=== PATIENT | female | born 1945 | race American Indian/Alaskan Native ===

== ENCOUNTER 2018-10-20 16:51 | Inpatient (IN) | payer MEDICARE, MEDICAID ==
[2018-10-20] MEDS ORDERED: PROVENTIL IH ONE (17:26)
[2018-10-20] MEDS ORDERED: MAGNESIUM SULFATE 2GM/50ML 2 GM/50 ML BAG IV ONE (17:26)
[2018-10-20] MEDS ORDERED: ATROVENT IH ONE (17:26)
[2018-10-20] MEDS ORDERED: NACL 0.9% 250ML 250 ML IV ONE (17:26)
--- NOTE | 2018-10-20 17:28 | Emergency Department Report ---
<DALLIN BALLARD - Last Filed: 10/20/18 20:21> ED General Adult HPI - General Chief complaint: Weakness Stated complaint: PETER Time Seen by Provider: 10/20/18 17:15 Source: EMS (verbal report received from EMS.ems notes not available at time of chart dictation), RN notes reviewed Mode of arrival: Stretcher Limitations: Other (the patient is a poor historian) - History of Present Illness Initial comments: This is a 73-year-old female. The patient is not known to this provider previously. The patient is brought to the hospital by emergency medical services with a primary complaint of cough, wheezing, shortness of breath. EMS gave steroids in the field, and albuterol. Upon arrival to the emergency room, the patient complains of cough, wheezing, shortness of breath. She is a poor historian, but thinks is been going on for a few days. She is having a hard time describing exacerbating or relieving factors. She reports that she thinks that her current house is contributing to her symptomatology. On review of systems, she complains of "vertigo", that was present 2 weeks ago. She denies room spinning, or body spinning sensations, but rather indicates that she has a right-sided headache, 2 weeks ago, that feels like somebody "slapped" the patient in the head. It is now resolved. The patient also describes urinary incontinence for one year. She denies dysuria. She also describes bilateral nontraumatic thigh pain, which does not radiate, which she describes as "sciatica." Patient disorganized, difficult to redirect, and is a very poor historian. No friends, family available for collateral information at this time. -: unknown Location: head, left, right, lower extremity Radiation: other Quality: other Consistency: other Improves with: other Worsens with: other - Related Data Allergies Allergy/AdvReac Type Severity Reaction Status Date / Time No Known Allergies Allergy Unverified 10/20/18 19:18 ED Review of Systems Comment: Unobtainable due to pts medical conditions Constitutional: fever, malaise, weakness Eyes: denies: vision change ENT: congestion Respiratory: shortness of breath, wheezing Cardiovascular: denies: chest pain Gastrointestinal: denies: nausea, vomiting Genitourinary: frequency Musculoskeletal: back pain, arthralgia, myalgia Neurological: paresthesias, confusion ED Physical Exam - General Limitations: Other (patient is delirious, patient is a poor historian) General appearance: in no apparent distress, anxious - Head Head exam: Present: atraumatic, normocephalic - Eye Eye exam: Present: normal appearance, EOMI. Absent: nystagmus - ENT ENT exam: Present: mucous membranes dry - Neck Neck exam: Present: normal inspection, full ROM. Absent: tenderness, meningismus - Respiratory Respiratory exam: Present: respiratory distress, wheezes, rhonchi - Cardiovascular Cardiovascular Exam: Present: regular rate, normal rhythm, normal heart sounds. Absent: bradycardia, tachycardia, irregular rhythm, systolic murmur, diastolic murmur, rubs, gallop - GI/Abdominal GI/Abdominal exam: Present: soft, tenderness, hernia, other (there is a right lower quadrant hernia noted, tender, nonreducible). Absent: distended, gu arding, rebound, rigid - Extremities Exam Extremities exam: Present: normal inspection, full ROM, other (2+ pulses noted in the bilateral upper, lower extremities. Compartments soft. No long bony tenderness. The pelvis is stable.). Absent: pedal edema, joint swelling, calf tenderness - Back Exam Back exam: Present: normal inspection, full ROM. Absent: tenderness, CVA tenderness (R), paraspinal tenderness, vertebral tenderness - Neurological Exam Neurological exam: Present: altered (patient is alert to name. She follows commands. She is delirious. She is not able to describe decision-making rationally), other (she moving 4 extremities. There is no facial droop. 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 Absent: rash ED Course - Reevaluation(s) Reevaluation #1: 10/20/18 19:10 The patient is refusing her CAT scans. I have gone back to reevaluate the patient. I expressed to the patient that I am recommending CT scan to exclude dangerous and life threatening causes of abdominal distention, hernia, potentially dangerous infection. The patient is delirious, and does not have decision-making capacity. She has made some comments about wanting a nuclear medicine study, and then an MRI. I explained to the patient in the history and physical, these are not the appropriate tests at this time. However, she still does not verbalize understanding. Given her abdominal tenderness, distention, fever, multiple complaints, it is my pain that the patient is acutely delirious, and currently does not have decision-making capacity. She will be medicated with Haldol to facilitate acquisition of diagnostics to exclude potentially dangerous, life-threatening injury/illness. She is not homicidal or suicidal, and I suspect that her acute febrile delirium/potential sepsis is the most likely etiologic cause of inability to process information rationally at this time. Reevaluation #2: 10/20/18 19:15 Differential diagnosis, including not limited to: Pneumonia, urinary tract infection, bronchitis, strangulated hernia,, incarcerated hernia Assessment and plan: 73-year-old female found to be febrile, with rales and rhonchi, hypoxic to 93% on room air, also complaining of vertigo, also found to have incidental right lower quadrant hernia, nonreducible, tender, although patient will not admit to having pain. However, she winces when this is examined. The patient is febrile, and delirious and does not have decision-making capacity currently. Given her fever, hypoxia, and physical exam findings, I have recommended emergent acquisi tion of CT imaging to exclude urgent, emergent pathology. This was described to the patient in detail, however, she is still refusing, however in my opinion, she does not have decision-making capacity, most likely secondary to acute febrile illness, delirium. She will therefore be medicated with Haldol, to facilitate acquisition of diagnostics, she'll be she would IV fluids, and antibiotics. She will be given supplemental oxygen as needed. She will likely require admission to the medical service when shortness of diagnostics have resulted. Reevaluation #3: 10/20/18 20:[address] Sourav Wilburn to follow up on ct scans and admit to medical service once diagnostics resulted ED Medical Decision Making - Lab Data Result diagrams: 10/20/18 18:04 10/20/18 18:04 Vital Signs 10/20/18 10/20/18 17:28 17:54 Temperature 100.7 F H Pulse Rate 92 H Respiratory 17 18 Rate Blood Pressure 126/96 [Left] O2 Sat by Pulse 97 98 Oximetry Lab Results 10/20/18 10/20/18 Range/Units 17:55 18:04 WBC 8.4 (4.5-11.0) K/mm3 RBC 4.94 (3.65-5.03) M/mm3 Hgb 13.3 (10.1-14.3) gm/dl Hct 41.1 (30.3-42.9) % MCV 83 (79-97) fl MCH 27 L (28-32) pg MCHC 32 (30-34) % RDW 14.9 (13.2-15.2) % Plt Count 183 (140-440) K/mm3 Urine Color Yellow (Yellow) Urine Turbidity Clear (Clear) Urine pH 6.0 (5.0-7.0) Ur Specific [place] 1.009 (1.003-1.030) Urine Protein 30 mg/dl (Negative) mg/dL Urine Glucose (UA) Neg (Negative) mg/dL Urine Ketones Neg (Negative) mg/dL Urine Blood Neg (Negative) Urine Nitrite Neg (Negative) Urine Bilirubin Neg (Negative) Urine Urobilinogen < 2.0 (<2.0) mg/dL Ur Leukocyte Esterase Neg (Negative) Urine WBC (Auto) < 1.0 (0.0-6.0) /HPF Urine RBC (Auto) 1.0 (0.0-6.0) /HPF U Epithel Cells (Auto) 2.0 (0-13.0) /HPF Urine Bacteria (Auto) 1+ (Negative) /HPF Urine Mucus Few /HPF - EKG Data -: EKG Interpreted by Nh EKG shows normal: sinus rhythm Rate: normal - EKG Data When compared to previous EKG there are: previous EKG unavailable 10/20/18 19:15 Sinus rhythm, 86 bpm, normal axis, QTC within normal limits, atrial enlargement, incomplete right bundle-branch block, abnormal EKG, not consistent with ST elev ation myocardial infarction - Radiology Data Radiology results: image reviewed ED Disposition Clinical Impression: Febrile illness, Delirium, Respiratory illness, Hypoxia, Hernia of anterior abdominal wall, Hydronephrosis, right, Fecal impaction Disposition: OP ADMIT IP TO THIS HOSP Condition: Stable Referrals: PRIMARY CARE, [Primary Care Provider] - 3-5 Days <SANDY WILBURN - Last Filed: 10/20/18 22:24> ED Review of Systems ROS: Stated complaint: PETER Other details as noted in HPI ED Course Vital Signs 10/20/18 10/20/18 10/20/18 17:28 17:54 19:45 Temperature 100.7 F H Pulse Rate 92 H 93 H Respiratory 17 18 19 Rate Blood Pressure 138/91 Blood Pressure 126/96 [Left] O2 Sat by Pulse 97 98 99 Oximetry 10/20/18 10/20/18 10/20/18 19:53 20:00 20:45 Temperature 98.3 F Pulse Rate 93 H 88 84 Respiratory 17 18 14 Rate Blood Pressure 137/83 131/74 Blood Pressure 138/91 [Left] O2 Sat by Pulse 99 99 94 Oximetry 10/20/18 10/20/18 21:01 21:15 Temperature Pulse Rate 89 84 Respiratory 20 16 Rate Blood Pressure 158/89 131/74 Blood Pressure [Left] O2 Sat by Pulse 93 93 Oximetry - Consultations Consultation #1: 10/20/18 22:13 massive anterior abdominal hernia. case d/w Telly gen surgery. Pt does not have significant tenderness and it is at least partially reducible. no signs of obstruction on ct. consult ordered Consultation #2: 10/20/18 22:14 consult ordered for urology. case however was not discussed with automation/controls manager doctor. may be consulted in the am since emergent consult not needed. Dr Medina listed as no call physician ED Medical Decision Making - Lab Data Result diagrams: 10/20/18 18:04 10/20/18 18:04 - Radiology Data Radiology results: report reviewed ROCEDURE: CT HEAD/BRAIN WO CON TECHNIQUE: CT images of the head were obtained without the use of IV contrast HISTORY: hx of vertigo, left sided headache COMPARISONS: None FINDINGS: No CT evidence of intracranial mass, hemorrhage, acute territorial infarction, or hydrocephalus. Intracranial arteries are symmetric in density. Calvarium is intact. The visualized paranasal sinuses and mastoids are aerated. IMPRESSION: No CT evidence of acute abnormality. PROCEDURE: XR CHEST 1V AP HISTORY: cough wheezing sob FINDINGS: Frontal view of the chest was acquired and demonstrates presence of cardiomegaly and tortuous aorta. There is no evidence of congestive heart failure. The lungs appear hyperinflated. There is is no consolidative pulmonary infiltrate. IMPRESSION: Hyperinflation No consolidative infiltrate PROCEDURE: CT ABDOMEN PELVIS WO CON TECHNIQUE: Computerized axial tomography of the abdomen and pelvis was performed without intravenous contrast. This study is performed without intravascular contrast material and its sensitivity for abdominal and pelvic pathology, including neoplasms, inflammation, abscess, free fluid, thrombosis, arterial dissection and infarction, is reduced compared with a contrast enhanced study. HISTORY: hx of vertigo, left sided headache COMPARISONS: None . FINDINGS: Lower Lung constantino: There appears to be minimal dependent atelectasis. Upper Abdomen: The unenhanced images of the liver are unremarkable. The spleen showed no abnormalities. The adrenal glands and the unenhanced images of the pancreas show no abnormalities. Gallbladder is not visualized. Kidneys, Ureters and Urinary bladder: Moderate to severe right-sided hydronephrosis visualized. There appears to be a marked transition at the ureteropelvic junction. This could represent chronic UPJ obstruction or acquired UPJ obstruction. No definite renal or ureteral calculi are seen. Left kidney and left ureter show no abnormalities. Urinary bladder is unremarkable. Calcifications are seen in the lower pelvis which appear to represent phleboliths. Retroperitoneum: Atherosclerotic changes are seen in the abdominal aorta. No aneurysm is visualized. Nonspecific subcentimeter lymph nodes are seen in the retroperitoneum. No pathologically enlarged lymph nodes are identified. Bowel: There is a large amount of stool distending the patient's rectum. The patient may be impacted. There is a massive anterior abdominal hernia containing large amount of adipose tissue, portions of the large bowel and small bowel. The bowel loops are mildly distended although I do not see definite changes to suggest obstruction. There is an enteric central line and a portion of the herniated loop of bowel within the hernia. No ascites or free intraperitoneal gas is seen. The appendix is not visualized. Reproductive organs: Uterus and adnexa are unremarkable. Other: There is grade 1 spondylolisthesis L4 in relation L5 and grade 1 spondylolisthesis L5 in relation to S1. This appears to be degenerative. There is marked facet arthritis greatest inferiorly. I do not see evidence of spondylolysis. Moderate diffuse dege nerative disc disease is seen throughout the lumbar spine. IMPRESSION: Massive anterior abdominal hernia visualized containing adipose tissue small large bowel. There is mild distention of a few loops of bowel although I do not see evidence of definite bowel obstruction. Moderate to severe right-sided hydronephrosis as described. A transition is present at the ureteropelvic junction suggesting congenital UPJ obstruction versus acquired UPJ obstruction. Urologic consultation suggested. Degenerative changes lower lumbar spine. Grade 1 spondylolisthesis of L4 and also L5 as described. Please see above comments. This appears degenerative. I do not see evidence of spondylolysis. Large amount stool seen distending the patient's rectum. The patient may be impacted. Postsurgical changes, enteric suture line, seen in a portion of loop of herniated bowel within the anterior abdominal wall hernia. Critical Care Time: No Critical care attestation.: If time is entered above; I have spent that time in minutes in the direct care of this critically ill patient, excluding procedure time. ED Disposition Is pt being admited?: Yes Time of Disposition: 22:20 (DR wang/hospitalist)
[2018-10-20] MEDS ORDERED: ROCEPHIN/NS 1 GM/50 ML 1 GM/50 ML BAG IV ONE (17:52)
[2018-10-20] MEDS ORDERED: TYLENOL PO PRN ×2 (17:52→23:15)
[2018-10-20 18:27] LABS: Bacteria,Urine 1+ /HPF (Negative); Bilirubin,Urine NEG (Negative); Blood,Urine NEG (Negative); Color,Urine Yellow (Yellow); Mucus,Urine FEW /HPF; Urobilinogen,Urine < 2.0 mg/dL (<2.0); WBC,Urine < 1.0 /HPF (0.0-6.0)
[2018-10-20 18:54] LABS: Hematocrit 41.1 % (30.3-42.9); Hemoglobin 13.3 gm/dl (10.1-14.3); Mean Corpuscular HGB Conc 32 % (30-34); Mean Corpuscular Volume 83 fl (79-97); Platelet Count 183 K/mm3 (140-440); Red Blood Count 4.94 M/mm3 (3.65-5.03); Red Cell Distribution Width 14.9 % (13.2-15.2)
[2018-10-20] MEDS ORDERED: HALDOL IM STA (19:10)
[2018-10-20 19:14] LABS: INR 1.05 (0.87-1.13)
[2018-10-20 19:29] LABS: Alanine Aminotransferase 18 units/L (7-56); Albumin 4.1 g/dL (3.9-5); BUN/Creatinine Ratio 22; Blood Urea Nitrogen 13 mg/dL (7-17); Calcium 9.2 mg/dL (8.4-10.2); Hemolysis Index 1
[2018-10-20] MEDS ORDERED: GEODON IM ONE ×2 (19:40→19:46)
--- NOTE | 2018-10-20 21:22 | XRay Report ---
PROCEDURE: XR CHEST 1V AP HISTORY: cough wheezing sob FINDINGS: Frontal view of the chest was acquired and demonstrates presence of cardiomegaly and tortuous aorta. There is no evidence of congestive heart failure. The lungs appear hyperinflated. There is is no cons olidative pulmonary infiltrate. IMPRESSION: Hyperinflation No consolidative infiltrate This document is electronically signed by Juan Diego Teran MD., October 20 2018 09:20:35 PM ET
--- NOTE | 2018-10-20 21:46 | Cat Scan Report ---
PROCEDURE: CT HEAD/BRAIN WO CON TECHNIQUE: CT images of the head were obtained without the use of IV contrast HISTORY: hx of vertigo, left sided headache COMPARISONS: None FINDINGS: No CT evidence of intracranial mass, hemorrhage, acute territorial infarction, or hydrocephalus. Intr acranial arteries are symmetric in density. Calvarium is intact. The visualized paranasal sinuses and mastoids are aerated. IMPRESSION: No CT evidence of acute abnormality. This document is electronically signed by Teresa Garcia MD., October 20 2018 09:44:11 PM ET
--- NOTE | 2018-10-20 21:48 | Cat Scan Report ---
PROCEDURE: CT ABDOMEN PELVIS WO CON TECHNIQUE: Computerized axial tomography of the abdomen and pelvis was performed without intravenous contrast. This study is performed without intravascular contrast material and its sensitivity for ab dominal and pelvic pathology, including neoplasms, inflammation, abscess, free fluid, thrombosis, art erial dissection and infarction, is reduced compared with a contrast enhanced study. HISTORY: hx of vertigo, left sided headache COMPARISONS: None . FINDINGS: Lower Lung constantino: There appears to be minimal dependent atelectasis. Upper Abdomen: The unenhanced images of the liver are unremarkable. The spleen showed no abnormaliti es. The adrenal glands and the unenhanced images of the pancreas show no abnormalities. Gallbladder i s not visualized. Kidneys, Ureters and Urinary bladder: Moderate to severe right-sided hydronephrosis visualized. Ther e appears to be a marked transition at the ureteropelvic junction. This could represent chronic UPJ o bstruction or acquired UPJ obstruction. No definite renal or ureteral calculi are seen. Left kidney a nd left ureter show no abnormalities. Urinary bladder is unremarkable. Calcifications are seen in the lower pelvis which appear to represent phleboliths. Retroperitoneum: Atherosclerotic changes are seen in the abdominal aorta. No aneurysm is visualized. Nonspecific subcentimeter lymph nodes are seen in the retroperitoneum. No pathologically enlarged ly mph nodes are identified. Bowel: There is a large amount of stool distending the patient's rectum. The patient may be impacted . There is a massive anterior abdominal hernia containing large amount of adipose tissue, portions of the large bowel and small bowel. The bowel loops are mildly distended although I do not see definite changes to suggest obstruction. There is an enteric central line and a portion of the herniated loop of bowel within the hernia. No ascites or free intraperitoneal gas is seen. The appendix is not visu alized. Reproductive organs: Uterus and adnexa are unremarkable. Other: There is grade 1 spondylolisthesis L4 in relation L5 and grade 1 spondylolisthesis L5 in relat ion to S1. This appears to be degenerative. There is marked facet arthritis greatest inferiorly. I do not see evidence of spondylolysis. Moderate diffuse degenerative disc disease is seen throughout the lumbar spine. IMPRESSION: Massive anterior abdominal hernia visualized containing adipose tissue small large bowel. There is mi ld distention of a few loops of bowel although I do not see evidence of definite bowel obstruction. Moderate to severe right-sided hydronephrosis as described. A transition is present at the ureteropel isa junction suggesting congenital UPJ obstruction versus acquired UPJ obstruction. Urologic consulta tion suggested. Degenerative changes lower lumbar spine. Grade 1 spondylolisthesis of L4 and also L5 as described. Pl ease see above comments. This appears degenerative. I do not see evidence of spondylolysis. Large amount stool seen distending the patient's rectum. The patient may be impacted. Postsurgical changes, enteric suture line, seen in a portion of loop of herniated bowel within the an terior abdominal wall hernia. This document is electronically signed by Billy Saldana MD., October 20 2018 09:46:20 PM ET
--- NOTE | 2018-10-20 23:06 | History and Physical Report ---
History of Present Illness Date of examination: 10/20/18 Chief complaint: Shortness of breath wheezing History of present illness: This is a 73-year-old female. Patient appears to have significant dementia. Poor historian and unable to give me any history. Most of the history and information obtained from review of her records and as per the ER physician's report. No friends, family available for collateral information at this time. As per the report and the records, The patient is brought to the hospital by emergency medical services with a primary complaint of cough, wheezing, shor tness of breath. EMS gave steroids in the field, and albuterol. Upon arrival to the emergency room, the patient complained of cough, wheezing, shortness of breath. She is a poor historian, but thinks is been going on for a few days. She is having a hard time describing exacerbating or relieving factors. She reported that she thinks that her current house is contributing to her symptomatology. On review of systems, she complains of "vertigo", that was present 2 weeks ago. She denies room spinning, or body spinning sensations, but rather indicates that she has a right-sided headache, 2 weeks ago, that feels like somebody "slapped" the patient in the head. It is now resolved. The patient also described urinary incontinence for one year. She denied dysuria. She also described bilateral nontraumatic thigh pain, which does not radiate, which she describes as "sciatica." Patient disorganized, difficult to redirect, and is a very poor historian. Hospitalist service is called to admit the patient for possible low-grade fevers and some upper respiratory symptoms shortness of breath and relatively low oxygen saturations with a O2 sat of 92-93%. Chest x-ray showed hyperinflation, possible some underlying COPD possible COPD exacerbation CT abdomen and pelvis showed anterior abdominal wall hernia with Loops of bowel but no evidence of obstruction or incarceration. Also showed right moderate to severe hydronephrosis with some transition point at the right UPJ likely consistent with chronic UPJ obstruction. No kidney or ureteral calculi seen. Also large amount of stool in the descending colon and rectum consistent with fecal impaction. No bowel obstruction no air-fluid levels. Past History Past Medical History: other (unable to obtain due to altered mental status) Past Surgical History: Other (unknown) Social history: other (unknown) Family history: other (unknown) Medications and Allergies Allergies Allergy/AdvReac Type Severity Reaction Status Date / Time No Known Allergies Allergy Unverified 10/20/18 19:18 Active Meds: Active Medications Acetaminophen (Tylenol) 650 mg PO Q6HR PRN PRN Reason: Pain Review of Systems ROS unobtainable: due to mental status Exam - Physical Exam Narrative exam: General: the patient is somnolent but easily arousable. Disheveled appearance. Confused and disoriented. Likely baseline dementia. no evidence of acute distress HEENT: Head is atraumatic normocephalic,. Pupils equal round reactive to light and accommodation, extraocular movements intact. Oral mucosa moist. Oropharynx clear. No pharyngeal erythema or tonsillar exudate. Excessive facial hair Neck: Supple no JVD no thyromegaly or lymphadenopathy. Heart: Regular rate and rhythm no murmurs or gallops. S1 and S2 normal. PMI not displaced. Lungs: Globally diminished breath sounds with scattered rhonchi , mild wheezing and bibasilar crackles. Nonlabored breathing. Normal chest wall expansion. Abdomen: Soft, nondistended, and nontender. Normoactive bowel sounds. Large anterior abdominal wall hernia, easily reducible. No hepatosplenomegaly. No abdominal bruit appreciated. Extremities: No cyanosis/clubbing/ edema. Musculoskeletal: Normal range of movement all joints. No obvious deformity or tenderness to palpation. Normal muscle tone. Back: Normal alignment. No step-off. No midline or paraspinal tenderness. No CVA tenderness. Neurological: Grossly intact and nonfocal. Patient moving all extremities equally bilaterally. Limited exam due to her mental status Skin: Warm and dry no rashes or bruises. Psychiatric: Unable to assess due to altered mental status. Likely underlying dementia . Vascular system: No lymphadenopathy. Distal pulses 2+ bilaterally. - Constitutional Vitals: Temp Pulse Resp BP Pulse Ox 98.3 F 84 16 131/74 93 10/20/18 19:53 10/20/18 21:15 10/20/18 21:15 10/20/18 21:15 10/20/18 21:15 Results - Labs CBC & Chem 7: 10/20/18 18:04 10/20/18 18:04 Labs: Laboratory Last Values WBC 8.4 K/mm3 (4.5-11.0) 10/20/18 18:04 RBC 4.94 M/mm3 (3.65-5.03) 10/20/18 18:04 Hgb 13.3 gm/dl (10.1-14.3) 10/20/18 18:04 Hct 41.1 % (30.3-42.9) 10/20/18 18:04 MCV 83 fl (79-97) 10/20/18 18:04 MCH 27 pg (28-32) L 10/20/18 18:04 MCHC 32 % (30-34) 10/20/18 18:04 RDW 14.9 % (13.2-15.2) 10/20/18 18:04 Plt Count 183 K/mm3 (140-440) 10/20/18 18:04 PT 14.4 Sec. (12.2-14.9) 10/20/18 18:04 INR 1.05 (0.87-1.13) 10/20/18 18:04 Sodium 145 mmol/L (137-145) 10/20/18 18:04 Potassium 4.0 mmol/L (3.6-5.0) 10/20/18 18:04 Chloride 104.4 mmol/L (98-107) 10/20/18 18:04 Carbon Dioxide 27 mmol/L (22-30) 10/20/18 18:04 Anion Gap 18 mmol/L 10/20/18 18:04 BUN 13 mg/dL (7-17) 10/20/18 18:04 Creatinine 0.6 mg/dL (0.7-1.2) L 10/20/18 18:04 Estimated GFR > 60 ml/min 10/20/18 18:04 BUN/Creatinine Ratio 22 % 10/20/18 18:04 Glucose 113 mg/dL (65-100) H 10/20/18 18:04 Lactic Acid 1.50 mmol/L (0.7-2.0) 10/20/18 18:04 Calcium 9.2 mg/dL (8.4-10.2) 10/20/18 18:04 Total Bilirubin 1.20 mg/dL (0.1-1.2) 10/20/18 18:04 AST 24 units/L (5-40) 10/20/18 18:04 ALT 18 units/L (7-56) 10/20/18 18:04 Alkaline Phosphatase 65 units/L (35-129) 10/20/18 18:04 Troponin T < 0.010 ng/mL (0.00-0.029) 10/20/18 18:04 NT-Pro-B Natriuret Pep 1352 pg/mL (0-900) H 10/20/18 18:04 Total Protein 6.8 g/dL (6.3-8.2) 10/20/18 18:04 Albumin 4.1 g/dL (3.9-5) 10/20/18 18:04 Albumin/Globulin Ratio 1.5 % 10/20/18 18:04 Urine Color Yellow (Yellow) 10/20/18 17:55 Urine Turbidity Clear (Clear) 10/20/18 17:55 Urine pH 6.0 (5.0-7.0) 10/20/18 17:55 Ur Specific Chambers 1.009 (1.003-1.030) 10/20/18 17:55 Urine Protein 30 mg/dl mg/dL (Negative) 10/20/18 17:55 Urine Glucose (UA) Neg mg/dL (Negative) 10/20/18 17:55 Urine Ketones Neg mg/dL (Negative) 10/20/18 17:55 Urine Blood Neg (Negative) 10/20/18 17:55 Urine Nitrite Neg (Negative) 10/20/18 17:55 Urine Bilirubin Neg (Negative) 10/20/18 17:55 Urine Urobilinogen < 2.0 mg/dL (<2.0) 10/20/18 17:55 Ur Leukocyte Esterase Neg (Negative) 10/20/18 17:55 Urine WBC (Auto) < 1.0 /HPF (0.0-6.0) 10/20/18 17:55 Urine RBC (Auto) 1.0 /HPF (0.0-6.0) 10/20/18 17:55 U Epithel Cells (Auto) 2.0 /HPF (0-13.0) 10/20/18 17:55 Urine Bacteria (Auto) 1+ /HPF (Negative) 10/20/18 17:55 Urine Mucus Few /HPF 10/20/18 17:55 Assessment and Plan Assessment and plan: Assessment and plan: * Altered mental status likely underlying dementia * Shortness of breath with relative hypoxia * Mild COPD exacerbation * Right hydronephrosis * Fecal impaction * Dementia without behavioral disturbance * Anterior abdominal wall hernia without obstruction or incarceration * Subjective fevers patient afebrile in the ER Plan: Admit patient to medical floor with telemetry Treat COPD exacerbation. Aggressive when necessary and scheduled bronchodi lators to his systemic and inhaled steroids Continue oxygen as tolerated As for the hernia general surgery was consulted by the ER physician will follow recommendations Will give MiraLAX and enema for constipation and fecal impaction As for the right hydronephrosis appears to be chronic. No evidence of acute renal failure or obstructive uropathy. Urology consult was ordered to be called in the morning Continue supportive and symptomatic management with IV fluids when necessary analgesics and antiemetics monitor CBC and electrolytes Replace electrolytes when necessary as per protocol DVT and GI prophylaxis as ordered Monitor and follow the patient closely Advance Directives: No VTE prophylaxis?: Chemical, Mechanical Plan of care discussed with patient/family: No
[2018-10-20] MEDS ORDERED: DILAUDID IV PRN (23:15)
[2018-10-20] MEDS ORDERED: AMBIEN PO PRN (23:15)
[2018-10-20] MEDS ORDERED: SODIUM CHLORIDE FLUSH SYRINGE 10 ML IV PRN (23:15)
[2018-10-20] MEDS ORDERED: PERCOCET 5/325 PO PRN (23:15)
[2018-10-20] MEDS ORDERED: ALUM-MAG HYDROX-SIMETH 200-200-20MG/5ML PO PRN (23:15)
[2018-10-20] MEDS ORDERED: ZOFRAN IV PRN (23:15)
[2018-10-20] MEDS ORDERED: NACL 0.45% 1000 ML 1,000 ML IV SCH (23:45)
[2018-10-21] MEDS: DUONEB *Not for PRN Use IH SCH ×4 (02:55→19:49)
[2018-10-21 05:29] LABS: Hematocrit 37.6 % (30.3-42.9); Hemoglobin 12.2 gm/dl (10.1-14.3); Lymphocytes # (Auto) 0.7 K/mm3 (1.2-5.4); Lymphocytes % (Auto) 8.8 % (13.4-35.0); Mean Corpuscular HGB Conc 33 % (30-34); Mean Corpuscular Volume 83 fl (79-97); Monocytes # (Auto) 0.4 K/mm3 (0.0-0.8); Monocytes % (Auto) 5.4 % (0.0-7.3); Platelet Count 170 K/mm3 (140-440); Red Blood Count 4.52 M/mm3 (3.65-5.03)
[2018-10-21 05:57] LABS: Alanine Aminotransferase 15 units/L (7-56); Albumin 3.5 g/dL (3.9-5); BUN/Creatinine Ratio 25; Blood Urea Nitrogen 15 mg/dL (7-17); Calcium 8.4 mg/dL (8.4-10.2); Hemolysis Index 11
[2018-10-21] MEDS: SENOKOT PO SCH ×2 (10:16→21:24)
[2018-10-21] MEDS: COLACE PO SCH ×2 (10:16→21:24)
[2018-10-21] MEDS: LOVENOX SUB-Q SCH ×2 (10:16→10:22)
[2018-10-21] MEDS: PEPCID PO SCH ×2 (10:16→21:25)
[2018-10-21] MEDS: MIRALAX 3350 PO SCH ×2 (10:17→21:24)
[2018-10-21] MEDS: SODIUM CHLORIDE FLUSH SYRINGE 10 ML IV SCH ×2 (10:17→21:25)
--- NOTE | 2018-10-21 10:43 | Progress Note ---
Assessment and Plan Assessment and plan: 73-year-old woman with history of dementia. The patient was brought into the hospital for shortness of breath wheezing and cough. Chest x-ray is negative for infiltrate CT abdomen shows abdominal wall hernia, but no obstruction or incarceration, also shows right moderate -severe hydronephrosis with some transition point at the right UPJ. Also large amount of stool in the descending colon and rectum consistent with fecal impaction Diagnoses COPD exacerbation Acute metabolic encephalopathy Soham moderate to severe right hydronephrosis Fecal impaction Dementia with behavioral disturbance Plan Continue steroids nebs and RT consult, pulmonary consult Urology consult for management of obstructive uropathy Attempt enema at bedside, if unable to clear the fecal impaction, will send to radiology for therapeutic enema Mental health consult, she has been agitated, and verbally abusive to staff DVT prophylaxis with Lovenox History Interval history: Review of systems Constitutional: No fevers, no malaise, no joint pains CVS: No chest pain, no orthopnea, no dyspnea on exertion, no pedal edema GI: No abdominal pain, no diarrhea, no vomiting, is yet to have a bowel movements Respiratory: Complaining of shortness of breath, wheezing and cough Hospitalist Physical - Physical exam Narrative exam: General.: Appears well, no distress, nontoxic HEENT: Moist mucous membranes, extraocular muscles intact, no lymphadenopathy Neck: supple Cardiac: S1-S2 heard Lungs: Wheezing, diminished air entry Abdomen: soft , nontender, nondistended, bowel sounds positive Extremities: no edema clubbing or cyanosis Skin: no rash or lesions Neurologic: no gross focal deficits, demented Psych: flight of ideas, confused, agitated, disorganized, lacks insight - Constitutional Vitals: Temp Pulse Resp BP Pulse Ox 97.4 F L 81 17 149/83 95 10/21/18 07:35 10/21/18 03:05 10/21/18 07:35 10/21/18 07:35 10/21/18 02:59 Results - Labs CBC & Chem 7: 10/21/18 04:34 10/21/18 04:34 Labs: Laboratory Last Values WBC 8.1 K/mm3 (4.5-11.0) 10/21/18 04:34 RBC 4.52 M/mm3 (3.65-5.03) 10/21/18 04:34 Hgb 12.2 gm/dl (10.1-14.3) 10/21/18 04:34 Hct 37.6 % (30.3-42.9) 10/21/18 04:34 MCV 83 fl (79-97) 10/21/18 04:34 MCH 27 pg (28-32) L 10/21/18 04:34 MCHC 33 % (30-34) 10/21/18 04:34 RDW 15.0 % (13.2-15.2) 10/21/18 04:34 Plt Count 170 K/mm3 (140-440) 10/21/18 04:34 Lymph % (Auto) 8.8 % (13.4-35.0) L 10/21/18 04:34 Anderson % (Auto) 5.4 % (0.0-7.3) 10/21/18 04:34 Eos % (Auto) 0.0 % (0.0-4.3) 10/21/18 04:34 Baso % (Auto) 0.0 % (0.0-1.8) 10/21/18 04:34 Lymph # 0.7 K/mm3 (1.2-5.4) L 10/21/18 04:34 Anderson # 0.4 K/mm3 (0.0-0.8) 10/21/18 04:34 Eos # 0.0 K/mm3 (0.0-0.4) 10/21/18 04:34 Baso # 0.0 K/mm3 (0.0-0.1) 10/21/18 04:34 Seg Neutrophils % 85.8 % (40.0-70.0) H 10/21/18 04:34 Seg Neutrophils # 6.9 K/mm3 (1.8-7.7) 10/21/18 04:34 PT 14.4 Sec. (12.2-14.9) 10/20/18 18:04 INR 1.05 (0.87-1.13) 10/20/18 18:04 Sodium 144 mmol/L (137-145) 10/21/18 04:34 Potassium 3.9 mmol/L (3.6-5.0) 10/21/18 04:34 Chloride 105.3 mmol/L (98-107) 10/21/18 04:34 Carbon Dioxide 24 mmol/L (22-30) 10/21/18 04:34 Anion Gap 19 mmol/L 10/21/18 04:34 BUN 15 mg/dL (7-17) 10/21/18 04:34 Creatinine 0.6 mg/dL (0.7-1.2) L 10/21/18 04:34 Estimated GFR > 60 ml/min 10/21/18 04:34 BUN/Creatinine Ratio 25 % 10/21/18 04:34 Glucose 148 mg/dL (65-100) H 10/21/18 04:34 Lactic Acid 1.50 mmol/L (0.7-2.0) 10/20/18 18:04 Calcium 8.4 mg/dL (8.4-10.2) 10/21/18 04:34 Phosphorus 3.10 mg/dL (2.5-4.5) 10/21/18 04:34 Magnesium 2.50 mg/dL (1.7-2.3) H 10/21/18 04:34 Total Bilirubin 0.50 mg/dL (0.1-1.2) 10/21/18 04:34 AST 21 units/L (5-40) 10/21/18 04:34 ALT 15 units/L (7-56) 10/21/18 04:34 Alkaline Phosphatase 52 units/L (35-129) 10/21/18 04:34 Troponin T < 0.010 ng/mL (0.00-0.029) 10/20/18 18:04 NT-Pro-B Natriuret Pep 1352 pg/mL (0-900) H 10/20/18 18:04 Total Protein 6.2 g/dL (6.3-8.2) L 10/21/18 04:34 Albumin 3.5 g/dL (3.9-5) L 10/21/18 04:34 Albumin/Globulin Ratio 1.3 % 10/21/18 04:34 Urine Color Yellow (Yellow) 10/20/18 17:55 Urine Turbidity Clear (Clear) 10/20/18 17:55 Urine pH 6.0 (5.0-7.0) 10/20/18 17:55 Ur Specific [place] 1.009 (1.003-1.030) 10/20/18 17:55 Urine Protein 30 mg/dl mg/dL (Negative) 10/20/18 17:55 Urine Glucose (UA) Neg mg/dL (Negative) 10/20/18 17:55 Urine Ketones Neg mg/dL (Negative) 10/20/18 17:55 Urine Blood Neg (Negative) 10/20/18 17:55 Urine Nitrite Neg (Negative) 10/20/18 17:55 Urine Bilirubin Neg (Negative) 10/20/18 17:55 Urine Urobilinogen < 2.0 mg/dL (<2.0) 10/20/18 17:55 Ur Leukocyte Esterase Neg (Negative) 10/20/18 17:55 Urine WBC (Auto) < 1.0 /HPF (0.0-6.0) 10/20/18 17:55 Urine RBC (Auto) 1.0 /HPF (0.0-6.0) 10/20/18 17:55 U Epithel Cells (Auto) 2.0 /HPF (0-13.0) 10/20/18 17:55 Urine Bacteria (Auto) 1+ /HPF (Negative) 10/20/18 17:55 Urine Mucus Few /HPF 10/20/18 17:55 Active Medications - Current Medications Current Medications: Generic Name Dose Route Start Last Admin Trade Name Freq PRN Reason Stop Dose Admin Acetaminophen 650 mg 10/20/18 23:15 Tylenol PO Q4H PRN Pain MILD(1-3)/Fever >100.5/MALIK Al Hydrox/Mg Hydrox/Simethicone 30 ml 10/20/18 23:15 Alum-Mag Hydrox-Simeth 477-159-97cu/5ml PO Q4H PRN Indigestion Albuterol/Ipratropium 1 ampul 10/21/18 02:00 10/21/18 02:55 Duoneb *Not For Prn Use* IH 1 ampul Q6HRT FLACA Administration Budesonide 0.5 mg 10/21/18 08:00 Pulmicort IH Q12HRT FLACA Docusate Sodium 100 mg 10/21/18 10:00 10/21/18 10:16 Colace PO 100 mg BID FLACA Administration Enoxaparin Sodium 40 mg 10/21/18 10:00 10/21/18 10:22 Lovenox SUB-Q Not Given QDAY FLACA Famotidine 20 mg 10/21/18 10:00 10/21/18 10:16 Pepcid PO 20 mg BID FLACA Administration Hydromorphone HCl 0.5 mg 10/20/18 23:15 Dilaudid IV Q3H PRN Pain , Severe (7-10) Sodium Chloride 1,000 mls @ 125 mls/hr 10/20/18 23:45 Nacl 0.45% 1000 Ml IV DIRECT FLACA Ondansetron HCl 4 mg 10/20/18 23:15 Zofran IV Q8H PRN Nausea And Vomiting Oxycodone/Acetaminophen 1 tab 10/20/18 23:15 Percocet 5/325 PO Q6H PRN Pain, Moderate (4-6) Polyethylene Glycol 17 gm 10/21/18 10:00 10/21/18 10:17 Miralax 3350 PO 17 gm BID FLACA Administration Senna 8.6 mg 10/21/18 10:00 10/21/18 10:16 Senokot PO 8.6 mg Q12HR FLACA Administration Sodium Chloride 10 ml 10/21/18 10:00 10/21/18 10:17 Sodium Chloride Flush Syringe 10 Ml IV 10 ml BID FLACA Administration Sodium Chloride 10 ml 10/20/18 23:15 Sodium Chloride Flush Syringe 10 Ml IV PRN PRN LINE FLUSH Zolpidem Tartrate 5 mg 10/20/18 23:15 Ambien PO QHS PRN Insomnia
[2018-10-21] MEDS: PULMICORT IH SCH ×2 (11:29→19:49)
--- NOTE | 2018-10-21 11:40 | Event Note ---
Date: 10/21/18 Patient seen. She refuses to be examined. She states she wants to be transferred. She has flight of ideas and is speaking about many different topics at the same time, needing to redirected many times. She states she has had the ventral hernia for many years and "will take it to the grave". She does not want any treatment for the hernia.
--- NOTE | 2018-10-21 13:34 | Consultation ---
History of Present Illness Consult date: 10/21/18 Requesting physician: DES SALOMON Reason for consult: COPD History of present illness: This is a 73-year-old female. Patient appears to have significant dementia. Poor historian and unable to give me any history. Most of the history and information obtained from review of her records and as per the ER physician's report. No friends, family available for collateral information at this time. As per the report and the records, The patient is brought to the hospital by emergency medical services with a primary complaint of cough, wheezing, shortness of breath. EMS gave steroids in the field, and albuterol. Upon arrival to the emergency room, the patient complained of cough, wheezing, shortness of breath. She is a poor historian, but thinks is been going on for a few days. She is having a hard time describing exacerbating or relieving factors. She reported that she thinks that her current house is contributing to her symptomatology. On review of systems, she complains of "vertigo", that was present 2 weeks ago. She denies room spinning, or body spinning sensations, but rather indicates that she has a right-sided headache, 2 weeks ago, that feels like somebody "slapped" the patient in the head. It is now resolved. The patient also described urinary incontinence for one year. She denied dysuria. She also described bilateral nontraumatic thigh pain, which does not radiate, which she describes as "sciatica." Patient disorganized, difficult to redirect, and is a very poor historian. Hospitalist service is called to admit the patient for possible low-grade fevers and some upper respiratory symptoms shortness of breath and relatively low oxygen saturations with a O2 sat of 92-93%. Chest x-ray showed hyperinflation, possible some underlying COPD possible COPD exacerbation CT abdomen and pelvis showed anterior abdominal wall hernia with Loops of bowel but no evidence of obstruction or incarceration. Also showed right moderate to severe hydronephrosis with some transition point at the right UPJ likely consistent with chronic UPJ obstruction. No kidney or ureteral calculi seen. A lso large amount of stool in the descending colon and rectum consistent with fecal impaction. No bowel obstruction no air-fluid levels. I have been consulted for AE-COPD Patient was seen and examined. Vitals, labs, medications, chart and imaging reviewed. Past History Past Medical History: other (unable to obtain due to altered mental status) Past Surgical History: Other (unknown) Social history: other (unknown) Family history: other (unknown) Medications and Allergies Allergies Allergy/AdvReac Type Severity Reaction Status Date / Time No Known Allergies Allergy Unverified 10/20/18 19:18 Home Medications Medication Instructions Recorded Confirmed Last Taken Type ALBUTEROL Inhaler(NF) [VENTOLIN 1 puff IH Q4H PRN #1 inha 10/25/18 Unknown Rx Inhaler(NF)] Albuterol Sulfate [Albuterol 0.63% 0.63 mg IH TID PRN #90 ml 10/25/18 Unknown Rx NEBS] Fluticasone/Salmeterol [Advair 1 each IH BID #1 blst.w.dev 10/25/18 Unknown Rx 100-50 Diskus] Lisinopril [Zestril TAB] 40 mg PO QDAY #30 tablet 10/25/18 Unknown Rx NIFEdipine XL [Procardia Xl] 60 mg PO Q12HR #60 tablet 10/25/18 Unknown Rx Polyethylene Glycol 3350 [Miralax 17 gm PO BID #60 powd.pack 10/25/18 Unknown Rx 3350] Sennosides Tab [Senokot] 8.6 mg PO Q12HR #60 tablet 10/25/18 Unknown Rx Tiotropium [place] [Spiriva 1 each IH DAILY #1 mist.inhal 10/25/18 Unknown Rx Respimat] oxyCODONE /ACETAMINOPHEN [Percocet 1 tab PO Q6H PRN #10 tablet 10/25/18 Unknown Rx 5/325 mg] predniSONE [Prednisone] 0 mg PO DAILY 6 Days tablet 10/25/18 Unknown Rx traZODone [Desyrel] 50 mg PO QHS #30 tablet 10/25/18 Unknown Rx Active Meds: Active Medications Acetaminophen (Tylenol) 650 mg PO Q4H PRN PRN Reason: Pain MILD(1-3)/Fever >100.5/MALIK Al Hydrox/Mg Hydrox/Simethicone (Alum-Mag Hydrox-Simeth [id number]/5ml) 30 ml PO Q4H PRN PRN Reason: Indigestion Albuterol/Ipratropium (Duoneb *Not For Prn Use*) 1 ampul IH Q6HRT FLACA Last Admin: 10/21/18 11:29 Dose: 1 ampul Documented by: Budesonide (Pulmicort) 0.5 mg IH Q12HRT [facility] Last Admin: 10/21/18 11:29 Dose: 0.5 mg Documented by: Docusate Sodium (Colace) 100 mg PO BID [facility] Last Admin: 10/21/18 10:16 Dose: 100 mg Documented by: Enoxaparin Sodium (Lovenox) 40 mg SUB-Q QDAY [facility] Last Admin: 10/21/18 10:22 Dose: Not Given Documented by: Famotidine (Pepcid) 20 mg PO BID [facility] Last Admin: 10/21/18 10:16 Dose: 20 mg Documented by: Hydromorphone HCl (Dilaudid) 0.5 mg IV Q3H PRN PRN Reason: Pain , Severe (7-10) Sodium Chloride (Nacl 0.45% 1000 Ml) 1,000 mls @ 125 mls/hr IV DIRECT [facility] Ondansetron HCl (Zofran) 4 mg IV Q8H PRN PRN Reason: Nausea And Vomiting Oxycodone/Acetaminophen (Percocet 5/325) 1 tab PO Q6H PRN PRN Reason: Pain, Moderate (4-6) Polyethylene Glycol (Miralax 3350) 17 gm PO BID [facility] Last Admin: 10/21/18 10:17 Dose: 17 gm Documented by: Senna (Senokot) 8.6 mg PO Q12HR [facility] Last Admin: 10/21/18 10:16 Dose: 8.6 mg Documented by: Sodium Chloride (Sodium Chloride Flush Syringe 10 Ml) 10 ml IV BID [facility] Last Admin: 10/21/18 10:17 Dose: 10 ml Documented by: Sodium Chloride (Sodium Chloride Flush Syringe 10 Ml) 10 ml IV PRN PRN PRN Reason: LINE FLUSH Zolpidem Tartrate (Ambien) 5 mg PO QHS PRN PRN Reason: Insomnia Physical Examination Vital signs: Vital Signs Temp Pulse Resp BP Pulse Ox 100.7 F H 92 H 17 126/96 97 10/20/18 17:28 10/20/18 17:28 10/20/18 17:28 10/20/18 17:28 10/20/18 17:28 General: the patient is somnolent but easily arousable. Disheveled appearance. Confused and disoriented. No evidence of acute distress HEENT: Head is atraumatic normocephalic,. Pupils equal round reactive to light and accommodation, extraocular movements intact. Oral mucosa moist. Oropharynx clear. No pharyngeal erythema or tonsillar exudate. Excessive facial hair Neck: Supple no JVD no thyromegaly or lymphadenopathy. Heart: Regular rate and rhythm no murmurs or gallops. S1 and S2 normal. PMI not displaced. Lungs: Globally diminished breath sounds with scattered rhonchi , mild wheezing and bibasilar crackles. Non labored breathing. Normal chest wall expansion. Abdomen: Soft, nondistended, and nontender. Normoactive bowel sounds. Large anterior abdominal wall hernia, easily reducible. No hepatosplenomegaly. No abdominal bruit appreciated. Extremities: No cyanosis/clubbing/ edema. Musculoskeletal: Normal range of movement all joints. No obvious deformity or tenderness to palpation. Normal muscle tone. Back: Normal alignment. No step-off. No midline or paraspinal tenderness. No CVA tenderness. Neurological: Grossly intact and non focal. Patient moving all extremities equally bilaterally. Limited exam due to her mental status Skin: Warm and dry no rashes or bruises. Psychiatric: Unable to assess due to altered mental status. Likely underlying dementia . Vascular system: No lymphadenopathy. Distal pulses 2+ bilaterally. Results - Laboratory Findings CBC and BMP: 10/21/18 04:34 10/21/18 04:34 PT/INR, D-dimer PT 14.4 Sec. (12.2-14.9) 10/20/18 18:04 INR 1.05 (0.87-1.13) 10/20/18 18:04 Abnormal lab findings: Abnormal Labs 10/20/18 10/20/18 10/21/18 18:04 18:04 04:34 MCH 27 L 27 L Lymph % (Auto) 8.8 L Lymph # 0.7 L Seg Neutrophils % 85.8 H Creatinine 0.6 L Glucose 113 H Magnesium NT-Pro-B Natriuret Pep 1352 H Total Protein Albumin 10/21/18 04:34 MCH Lymph % (Auto) Lymph # Seg Neutrophils % Creatinine 0.6 L Glucose 148 H Magnesium 2.50 H NT-Pro-B Natriuret Pep Total Protein 6.2 L Albumin 3.5 L - Diagnostic Findings Chest x-ray: image reviewed (Hyperinflation, no acute infiltrates) Assessment and Plan AE-COPD Acute metabolic encephalopathy Pyrexia Soham moderate to severe right hydronephrosis Fecal impaction Dementia with behavioral disturbance -Bronchodilators, LABA/LAMA -ABG -Antibiotics -Steroids with quick taper -Supplemental oxygen to keep O2 sats > 90% -Accucheck with glycemic control, target blood glucose 140-180mg/dL -VTE prophylaxis -Chronic home medications -Bowel regimen -Agitation management -PRN CXR -Urology consult for management of obstructive uropathy Thank you for this consult. Will follow Discussed care plan with primary service
--- NOTE | 2018-10-21 14:40 | Consultation ---
History of Present Illness - Reason for Consult Consult date: 10/21/18 - History of Present Illness CC -SOB for admission (CTAP rt hydro) Unable to get history from pt due to her inability to focus on my questions. Randomly complaining about the food & cussing for no reason Most of history taken from chart review This is a 73-year-old female. Patient appears to have significant dementia. Poor historian and unable to give me any history. Most of the history and information obtained from review of her records and as per the ER physician's report. No friends, family available for collateral information at this time. As per the report and the records, The patient is brought to the hospital by emergency medical services with a primary complaint of cough, wheezing, shortness of breath. EMS gave steroids in the field, and albuterol.The patient also described urinary incontinence for one year. She denied dysuria. She also described bilateral nontraumatic thigh pain, which does not radiate, which she describes as "sciatica." CT abdomen and pelvis showed anterior abdominal wall hernia with Loops of bowel but no evidence of obstruction or incarceration, DJD spine. Also showed right moderate to severe hydronephrosis with some transition point at the right UPJ likely consistent with chronic UPJ obstruction. No kidney or ureteral calculi seen. Also large amount of stool in the descending colon and rectum consistent with fecal impaction. No bowel obstruction no air-fluid levels. A/P chronic UPJ obstruction DJD spine no fever or elevated WBC - does not appear septic Would not do cysto, stent (consider observation or perc tube only) Consult IR----spoke with Dr. Blevins Past History Past Medical History: other (unable to obtain due to altered mental status) Past Surgical History: Other (unknown) Social history: other (unknown) Family history: other (unknown) Medications and Allergies Allergies Allergy/AdvReac Type Severity Reaction Status Date / Time No Known Allergies Allergy Unverified 10/20/18 19:18 Home Medications Medication Instructions Recorded Confirmed Last Taken Type No Known Home Medications [No 10/21/18 10/21/18 Unknown History Reported Home Medications] Active Meds: Active Medications Acetaminophen (Tylenol) 650 mg PO Q4H PRN PRN Reason: Pain MILD(1-3)/Fever >100.5/MALIK Al Hydrox/Mg Hydrox/Simethicone (Alum-Mag Hydrox-Simeth [id number]/5ml) 30 ml PO Q4H PRN PRN Reason: Indigestion Albuterol/Ipratropium (Duoneb *Not For Prn Use*) 1 ampul IH Q6HRT [facility] Last Admin: 10/21/18 11:29 Dose: 1 ampul Documented by: Budesonide (Pulmicort) 0.5 mg IH Q12HRT [facility] Last Admin: 10/21/18 11:29 Dose: 0.5 mg Documented by: Docusate Sodium (Colace) 100 mg PO BID [facility] Last Admin: 10/21/18 10:16 Dose: 100 mg Documented by: Enoxaparin Sodium (Lovenox) 40 mg SUB-Q QDAY [facility] Last Admin: 10/21/18 10:22 Dose: Not Given Documented by: Famotidine (Pepcid) 20 mg PO BID [facility] Last Admin: 10/21/18 10:16 Dose: 20 mg Documented by: Hydromorphone HCl (Dilaudid) 0.5 mg IV Q3H PRN PRN Reason: Pain , Severe (7-10) Sodium Chloride (Nacl 0.45% 1000 Ml) 1,000 mls @ 125 mls/hr IV DIRECT [facility] Ondansetron HCl (Zofran) 4 mg IV Q8H PRN PRN Reason: Nausea And Vomiting Oxycodone/Acetaminophen (Percocet 5/325) 1 tab PO Q6H PRN PRN Reason: Pain, Moderate (4-6) Polyethylene Glycol (Miralax 3350) 17 gm PO BID [facility] Last Admin: 10/21/18 10:17 Dose: 17 gm Documented by: Senna (Senokot) 8.6 mg PO Q12HR [facility] Last Admin: 10/21/18 10:16 Dose: 8.6 mg Documented by: Sodium Chloride (Sodium Chloride Flush Syringe 10 Ml) 10 ml IV BID [facility] Last Admin: 10/21/18 10:17 Dose: 10 ml Documented by: Sodium Chloride (Sodium Chloride Flush Syringe 10 Ml) 10 ml IV PRN PRN PRN Reason: LINE FLUSH Zolpidem Tartrate (Ambien) 5 mg PO QHS PRN PRN Reason: Insomnia Exam - Constitutional Vitals: Temp Pulse Resp BP Pulse Ox 97.4 F L 80 18 149/83 95 10/21/18 07:35 10/21/18 11:00 10/21/18 11:00 10/21/18 07:35 10/21/18 10:00 Results - Labs CBC & Chem 7: 10/21/18 04:34 10/21/18 04:34 Labs: Abnormal lab results 10/20/18 10/20/18 10/21/18 Range/Units 18:04 18:04 04:34 MCH 27 L 27 L (28-32) pg Lymph % (Auto) 8.8 L (13.4-35.0) % Lymph # 0.7 L (1.2-5.4) K/mm3 Seg Neutrophils % 85.8 H (40.0-70.0) % Creatinine 0.6 L (0.7-1.2) mg/dL Glucose 113 H (65-100) mg/dL Magnesium (1.7-2.3) mg/dL NT-Pro-B Natriuret Pep 1352 H (0-900) pg/mL Total Protein (6.3-8.2) g/dL Albumin (3.9-5) g/dL 10/21/18 Range/Units 04:34 MCH (28-32) pg Lymph % (Auto) (13.4-35.0) % Lymph # (1.2-5.4) K/mm3 Seg Neutrophils % (40.0-70.0) % Creatinine 0.6 L (0.7-1.2) mg/dL Glucose 148 H (65-100) mg/dL Magnesium 2.50 H (1.7-2.3) mg/dL NT-Pro-B Natriuret Pep (0-900) pg/mL Total Protein 6.2 L (6.3-8.2) g/dL Albumin 3.5 L (3.9-5) g/dL
--- NOTE | 2018-10-21 15:00 | Consultation ---
History of Present Illness - Reason for Consult Consult date: 10/21/18 right hydronephrosis - History of Present Illness 73-year-old female. Patient appears to have significant dementia. Jeff moon istorian and unable to give me any history. Most of the history and information obtained from review of her records and as per the ER physician's report. No friends, family available for collateral information at this time. As per the report and the records, The patient is brought to the hospital by emergency medical services with a primary complaint of cough, wheezing, shortness of breath. EMS gave steroids in the field, and albuterol. Upon arrival to the emergency room, the patient complained of cough, wheezing, shortness of breath. She is a poor historian, but thinks is been going on for a few days. She is having a hard time describing exacerbating or relieving factors. She reported that she thinks that her current house is contributing to her symptomatology. On review of systems, she complains of "vertigo", that was present 2 weeks ago. She denies room spinning, or body spinning sensations, but rather indicates that she has a right-sided headache, 2 weeks ago, that feels like somebody "slapped" the patient in the head. It is now resolved. The patient also described urinary incontinence for one year. She denied dysuria. She also described bilateral nontraumatic thigh pain, which does not radiate, which she describes as "sciatica." CT abdomen and pelvis showed anterior abdominal wall hernia with Loops of bowel but no evidence of obstruction or incarceration. Also showed right moderate to severe hydronephrosis with some transition point at the right UPJ likely consis tent with chronic UPJ obstruction. No kidney or ureteral calculi seen. Also large amount of stool in the descending colon and rectum consistent with fecal impaction. No bowel obstruction no air-fluid levels. Consulted for chronic UPJ obstruction. Reviewed CT scan demonstrating chronic right UPJ obstruction. Patient reports that she has known about this for at least 90 days and has declined to get a nuclear medicine test in the interim. She is very noncompliant. She has had back pain for the last 9-10 years with a right-sided predominance. It is unclear if this is related to her UPJ chronic obstruction. Discussed options with the patient. Past History Past Medical History: other (unable to obtain due to altered mental status) Past Surgical History: Other (unknown) Social history: other (unknown) Family history: other (unknown) Medications and Allergies Allergies Allergy/AdvReac Type Severity Reaction Status Date / Time No Known Allergies Allergy Unverified 10/20/18 19:18 Home Medications Medication Instructions Recorded Confirmed Last Taken Type No Known Home Medications [No 10/21/18 10/21/18 Unknown History Reported Home Medications] Active Meds: Active Medications Acetaminophen (Tylenol) 650 mg PO Q4H PRN PRN Reason: Pain MILD(1-3)/Fever >100.5/MALIK Al Hydrox/Mg Hydrox/Simethicone (Alum-Mag Hydrox-Simeth [id number]/5ml) 30 ml PO Q4H PRN PRN Reason: Indigestion Albuterol/Ipratropium (Duoneb *Not For Prn Use*) 1 ampul IH Q6HRT [facility] Last Admin: 10/21/18 14:37 Dose: Not Given Documented by: Budesonide (Pulmicort) 0.5 mg IH Q12HRT [facility] Last Admin: 10/21/18 11:29 Dose: 0.5 mg Documented by: Docusate Sodium (Colace) 100 mg PO BID [facility] Last Admin: 10/21/18 10:16 Dose: 100 mg Documented by: Enoxaparin Sodium (Lovenox) 40 mg SUB-Q QDAY [facility] Last Admin: 10/21/18 10:22 Dose: Not Given Documented by: Famotidine (Pepcid) 20 mg PO BID [facility] Last Admin: 10/21/18 10:16 Dose: 20 mg Documented by: Hydromorphone HCl (Dilaudid) 0.5 mg IV Q3H PRN PRN Reason: Pain , Severe (7-10) Sodium Chloride (Nacl 0.45% 1000 Ml) 1,000 mls @ 125 mls/hr IV DIRECT [facility] Ondansetron HCl (Zofran) 4 mg IV Q8H PRN PRN Reason: Nausea And Vomiting Oxycodone/Acetaminophen (Percocet 5/325) 1 tab PO Q6H PRN PRN Reason: Pain, Moderate (4-6) Polyethylene Glycol (Miralax 3350) 17 gm PO BID [facility] Last Admin: 10/21/18 10:17 Dose: 17 gm Documented by: Senna (Senokot) 8.6 mg PO Q12HR [facility] Last Admin: 10/21/18 10:16 Dose: 8.6 mg Documented by: Sodium Chloride (Sodium Chloride Flush Syringe 10 Ml) 10 ml IV BID [facility] Last Admin: 10/21/18 10:17 Dose: 10 ml Documented by: Sodium Chloride (Sodium Chloride Flush Syringe 10 Ml) 10 ml IV PRN PRN PRN Reason: LINE FLUSH Zolpidem Tartrate (Ambien) 5 mg PO QHS PRN PRN Reason: Insomnia Review of Systems ROS unobtainable: due to mental status (flight of ideas) Exam - Constitutional Vitals: Temp Pulse Resp BP Pulse Ox 98.5 F 89 18 164/94 90 10/21/18 14:44 10/21/18 14:44 10/21/18 14:44 10/21/18 14:44 10/21/18 14:44 General appearance: Present: no acute distress (multiple chronic issues which have been present for years) - EENT Eyes: Present: EOM intact ENT: hearing intact - Respiratory Respiratory effort: normal - Abdominal General gastrointestinal: Present: other (chronic back pain with right sided predominance) - Psychiatric Psychiatric: cooperative, other (flight of ideas) Results - Labs CBC & Chem 7: 10/21/18 04:34 10/21/18 04:34 Labs: Abnormal lab results 10/20/18 10/20/18 10/21/18 Range/Units 18:04 18:04 04:34 MCH 27 L 27 L (28-32) pg Lymph % (Auto) 8.8 L (13.4-35.0) % Lymph # 0.7 L (1.2-5.4) K/mm3 Seg Neutrophils % 85.8 H (40.0-70.0) % POC ABG pO2 (80-105) Creatinine 0.6 L (0.7-1.2) mg/dL Glucose 113 H (65-100) mg/dL Magnesium (1.7-2.3) mg/dL NT-Pro-B Natriuret Pep 1352 H (0-900) pg/mL Total Protein (6.3-8.2) g/dL Albumin (3.9-5) g/dL 10/21/18 10/21/18 Range/Units 04:34 14:38 MCH (28-32) pg Lymph % (Auto) (13.4-35.0) % Lymph # (1.2-5.4) K/mm3 Seg Neutrophils % (40.0-70.0) % POC ABG pO2 69 L (80-105) Creatinine 0.6 L (0.7-1.2) mg/dL Glucose 148 H (65-100) mg/dL Magnesium 2.50 H (1.7-2.3) mg/dL NT-Pro-B Natriuret Pep (0-900) pg/mL Total Protein 6.2 L (6.3-8.2) g/dL Albumin 3.5 L (3.9-5) g/dL - Imaging and Cardiology CT scan - abdomen: report reviewed, image reviewed Assessment and Plan 73-year-old female with multiple medical issues with chronic right UPJ obstruction. No signs of right pyelonephritis. Patient has chronic back pain with a right- sided predominance for 9-10 years. Patient already knows about her chronic right UPJ obstruction and has declined to get a nuclear medicine test in the interim for unclear reasons. Discussed options with patient. Discussed with the patient that I recommend she gets her nuclear medicine test, and can then make a decision regarding right nephrectomy versus surgical correction of right UPJ obstruction. Discussed with patient that I do not recommend nephrostomy tube due to the lack of any acute symptoms and that she has been dealing with chronic right-sided pain for the last 9-10 years. She is also at high risk for having a poor outcome after nephrostomy tube.
[2018-10-22] MEDS: DUONEB *Not for PRN Use IH SCH ×4 (02:26→21:25)
[2018-10-22] MEDS: APRESOLINE IV PRN ×4 (03:01→19:42)
[2018-10-22] MEDS: LOVENOX SUB-Q SCH (10:43)
[2018-10-22] MEDS: SENOKOT PO SCH ×2 (10:44→21:59)
[2018-10-22] MEDS: COLACE PO SCH ×2 (10:44→21:59)
[2018-10-22] MEDS: PEPCID PO SCH ×2 (10:44→21:59)
[2018-10-22] MEDS: MIRALAX 3350 PO SCH ×2 (10:45→21:58)
[2018-10-22] MEDS: SODIUM CHLORIDE FLUSH SYRINGE 10 ML IV SCH ×2 (10:45→22:00)
[2018-10-22] MEDS: PULMICORT IH SCH ×2 (11:25→21:25)
[2018-10-22] MEDS ORDERED: HALDOL PO PRN (11:36)
--- NOTE | 2018-10-22 11:40 | Progress Note ---
Assessment and Plan Assessment and plan: 73-year-old woman with history of dementia. The patient was brought into the hospital for shortness of breath wheezing and cough. Chest x-ray is negative for infiltrate CT abdomen shows abdominal wall hernia, but no obstruction or incarceration, also shows right moderate -severe hydronephrosis with some transition point at the right UPJ. Also large amount of stool in the descending colon and rectum consistent with fecal impaction Diagnoses COPD exacerbation Acute metabolic encephalopathy Mild moderate to severe right hydronephrosis Fecal impaction Dementia with behavioral disturbance Plan Continue steroids nebs and RT consult, pulmonary consult appreciated Urology and IR consult for management of obstructive uropathy, appreciated, needs nuc renal scan Attempt enema at bedside, if unable to clear the fecal impaction, will send to radiology for therapeutic enema Mental health consult, she has been agitated, and verbally abusive to staff, trazodone hs, and haldol prn -she is refusing nuclear renal scan at this time, spoke to her sister, she does not have capacity to make her own decisions, will give ativan division service manager and do the test DVT prophylaxis with Lovenox AUDRA Guerrier contact: [phone]. History Interval history: Review of systems Constitutional: No fevers, no malaise, no joint pains CVS: No chest pain, no orthopnea, no dyspnea on exertion, no pedal edema GI: No abdominal pain, no diarrhea, no vomiting, is yet to have a bowel movements Respiratory: denies sob Hospitalist Physical - Physical exam Narrative exam: General.: Appears well, no distress, nontoxic HEENT: Moist mucous membranes, extraocular muscles intact, no lymphadenopathy Neck: supple Cardiac: S1-S2 heard Lungs: Wheezing, diminished air entry Abdomen: soft , nontender, nondistended, bowel sounds positive Extremities: no edema clubbing or cyanosis Skin: no rash or lesions Neurologic: no gross focal deficits, demented Psych: flight of ideas, confused, agitated, disorganized, lacks insight - Constitutional Vitals: Temp Pulse Resp BP Pulse Ox 98.3 F 94 H 18 174/112 94 10/22/18 02:00 10/22/18 02:00 10/22/18 02:00 10/22/18 06:43 10/22/18 02:00 General appearance: Present: no acute distress (multiple chronic issues which have been present for years) Results - Labs CBC & Chem 7: 10/21/18 04:34 10/21/18 04:34 Labs: Laboratory Last Values WBC 8.1 K/mm3 (4.5-11.0) 10/21/18 04:34 RBC 4.52 M/mm3 (3.65-5.03) 10/21/18 04:34 Hgb 12.2 gm/dl (10.1-14.3) 10/21/18 04:34 Hct 37.6 % (30.3-42.9) 10/21/18 04:34 MCV 83 fl (79-97) 10/21/18 04:34 MCH 27 pg (28-32) L 10/21/18 04:34 MCHC 33 % (30-34) 10/21/18 04:34 RDW 15.0 % (13.2-15.2) 10/21/18 04:34 Plt Count 170 K/mm3 (140-440) 10/21/18 04:34 Lymph % (Auto) 8.8 % (13.4-35.0) L 10/21/18 04:34 [place] % (Auto) 5.4 % (0.0-7.3) 10/21/18 04:34 Eos % (Auto) 0.0 % (0.0-4.3) 10/21/18 04:34 Baso % (Auto) 0.0 % (0.0-1.8) 10/21/18 04:34 Lymph # 0.7 K/mm3 (1.2-5.4) L 10/21/18 04:34 [place] # 0.4 K/mm3 (0.0-0.8) 10/21/18 04:34 Eos # 0.0 K/mm3 (0.0-0.4) 10/21/18 04:34 Baso # 0.0 K/mm3 (0.0-0.1) 10/21/18 04:34 Seg Neutrophils % 85.8 % (40.0-70.0) H 10/21/18 04:34 Seg Neutrophils # 6.9 K/mm3 (1.8-7.7) 10/21/18 04:34 PT 14.4 Sec. (12.2-14.9) 10/20/18 18:04 INR 1.05 (0.87-1.13) 10/20/18 18:04 POC ABG pH 7.427 (7.35-7.45) 10/21/18 14:38 POC ABG pCO2 38.3 (35-45) 10/21/18 14:38 POC ABG pO2 69 (80-105) L 10/21/18 14:38 POC ABG HCO3 25.3 (22-26 mml/L) 10/21/18 14:38 POC ABG Total CO2 26 (23-27mmol/L) 10/21/18 14:38 POC ABG O2 Sat 94 10/21/18 14:38 POC ABG Base Excess 1 ((-2) - (+3)mmol/L) 10/21/18 14:38 FiO2 21 % 10/21/18 14:38 Sodium 144 mmol/L (137-145) 10/21/18 04:34 Potassium 3.9 mmol/L (3.6-5.0) 10/21/18 04:34 Chloride 105.3 mmol/L (98-107) 10/21/18 04:34 Carbon Dioxide 24 mmol/L (22-30) 10/21/18 04:34 Anion Gap 19 mmol/L 10/21/18 04:34 BUN 15 mg/dL (7-17) 10/21/18 04:34 Creatinine 0.6 mg/dL (0.7-1.2) L 10/21/18 04:34 Estimated GFR > 60 ml/min 10/21/18 04:34 BUN/Creatinine Ratio 25 % 10/21/18 04:34 Glucose 148 mg/dL (65-100) H 10/21/18 04:34 Lactic Acid 1.50 mmol/L (0.7-2.0) 10/20/18 18:04 Calcium 8.4 mg/dL (8.4-10.2) 10/21/18 04:34 Phosphorus 3.10 mg/dL (2.5-4.5) 10/21/18 04:34 Magnesium 2.50 mg/dL (1.7-2.3) H 10/21/18 04:34 Total Bilirubin 0.50 mg/dL (0.1-1.2) 10/21/18 04:34 AST 21 units/L (5-40) 10/21/18 04:34 ALT 15 units/L (7-56) 10/21/18 04:34 Alkaline Phosphatase 52 units/L (35-129) 10/21/18 04:34 Troponin T < 0.010 ng/mL (0.00-0.029) 10/20/18 18:04 NT-Pro-B Natriuret Pep 1352 pg/mL (0-900) H 10/20/18 18:04 Total Protein 6.2 g/dL (6.3-8.2) L 10/21/18 04:34 Albumin 3.5 g/dL (3.9-5) L 10/21/18 04:34 Albumin/Globulin Ratio 1.3 % 10/21/18 04:34 Urine Color Yellow (Yellow) 10/20/18 17:55 Urine Turbidity Clear (Clear) 10/20/18 17:55 Urine pH 6.0 (5.0-7.0) 10/20/18 17:55 Ur Specific [place] 1.009 (1.003-1.030) 10/20/18 17:55 Urine Protein 30 mg/dl mg/dL (Negative) 10/20/18 17:55 Urine Glucose (UA) Neg mg/dL (Negative) 10/20/18 17:55 Urine Ketones Neg mg/dL (Negative) 10/20/18 17:55 Urine Blood Neg (Negative) 10/20/18 17:55 Urine Nitrite Neg (Negative) 10/20/18 17:55 Urine Bilirubin Neg (Negative) 10/20/18 17:55 Urine Urobilinogen < 2.0 mg/dL (<2.0) 10/20/18 17:55 Ur Leukocyte Esterase Neg (Negative) 10/20/18 17:55 Urine WBC (Auto) < 1.0 /HPF (0.0-6.0) 10/20/18 17:55 Urine RBC (Auto) 1.0 /HPF (0.0-6.0) 10/20/18 17:55 U Epithel Cells (Auto) 2.0 /HPF (0-13.0) 10/20/18 17:55 Urine Bacteria (Auto) 1+ /HPF (Negative) 10/20/18 17:55 Urine Mucus Few /HPF 10/20/18 17:55 Active Medications - Current Medications Current Medications: Generic Name Dose Route Start Last Admin Trade Name Freq PRN Reason Stop Dose Admin Acetaminophen 650 mg 10/20/18 23:15 Tylenol PO Q4H PRN Pain MILD(1-3)/Fever >100.5/MALIK Al Hydrox/Mg Hydrox/Simethicone 30 ml 10/20/18 23:15 Alum-Mag Hydrox-Simeth [id number]/5ml PO Q4H PRN Indigestion Albuterol/Ipratropium 1 ampul 10/21/18 02:00 10/22/18 02:26 Duoneb *Not For Prn Use* IH Not Given Q6HRT [facility] Budesonide 0.5 mg 10/21/18 08:00 10/21/18 19:49 Pulmicort IH 0.5 mg Q12HRT [facility] Administration Docusate Sodium 100 mg 10/21/18 10:00 10/22/18 10:44 Colace PO 100 mg BID [facility] Administration Enoxaparin Sodium 40 mg 10/21/18 10:00 10/22/18 10:43 Lovenox SUB-Q 40 mg QDAY [facility] Administration Famotidine 20 mg 10/21/18 10:00 10/22/18 10:44 Pepcid PO 20 mg BID [facility] Administration Haloperidol 1 mg 10/22/18 11:36 Haldol PO Q6H PRN Agitation Hydralazine HCl 10 mg 10/22/18 02:46 10/22/18 06:47 Apresoline IV 10 mg Q4H PRN Administration SBP > 160 or DBP > 110 Hydromorphone HCl 0.5 mg 10/20/18 23:15 Dilaudid IV Q3H PRN Pain , Severe (7-10) Sodium Chloride 1,000 mls @ 125 mls/hr 10/20/18 23:45 Nacl 0.45% 1000 Ml IV DIRECT [facility] Ondansetron HCl 4 mg 10/20/18 23:15 Zofran IV Q8H PRN Nausea And Vomiting Oxycodone/Acetaminophen 1 tab 10/20/18 23:15 10/22/18 10:58 Percocet 5/325 PO 1 tab Q6H PRN Administration Pain, Moderate (4-6) Polyethylene Glycol 17 gm 10/21/18 10:00 10/22/18 10:45 Miralax 3350 PO 17 gm BID [facility] Administration Senna 8.6 mg 10/21/18 10:00 10/22/18 10:44 Senokot PO 8.6 mg Q12HR [facility] Administration Sodium Chloride 10 ml 10/21/18 10:00 10/22/18 10:45 Sodium Chloride Flush Syringe 10 Ml IV 10 ml BID [facility] Administration Sodium Chloride 10 ml 10/20/18 23:15 Sodium Chloride Flush Syringe 10 Ml IV PRN PRN LINE FLUSH Trazodone HCl 50 mg 10/22/18 22:00 Desyrel PO QHS [facility] Zolpidem Tartrate 5 mg 10/20/18 23:15 Ambien PO QHS PRN Insomnia
--- NOTE | 2018-10-22 13:49 | Progress Note ---
Subjective Date of service: 10/22/18 Objective Vital Signs - 12hr 10/22/18 10/22/18 10/22/18 02:00 04:20 06:43 Temperature 98.3 F Pulse Rate 94 H Respiratory 18 Rate Blood Pressure 175/104 174/112 Blood Pressure 200/133 [Left] O2 Sat by Pulse 94 Oximetry 10/22/18 13:24 Temperature Pulse Rate Respiratory Rate Blood Pressure 178/107 Blood Pressure [Left] O2 Sat by Pulse Oximetry CBC and BMP: 10/21/18 04:34 10/21/18 04:34 ABG, PT/INR, D-dimer: ABG POC ABG pH 7.427 (7.35-7.45) 10/21/18 14:38 POC ABG pCO2 38.3 (35-45) 10/21/18 14:38 POC ABG pO2 69 (80-105) L 10/21/18 14:38 POC ABG HCO3 25.3 (22-26 mml/L) 10/21/18 14:38 POC ABG Total CO2 26 (23-27mmol/L) 10/21/18 14:38 POC ABG O2 Sat 94 10/21/18 14:38 PT/INR, D-dimer PT 14.4 Sec. (12.2-14.9) 10/20/18 18:04 INR 1.05 (0.87-1.13) 10/20/18 18:04 Abnormal lab findings: Abnormal Labs 10/20/18 10/20/18 10/21/18 18:04 18:04 04:34 MCH 27 L 27 L Lymph % (Auto) 8.8 L Lymph # 0.7 L Seg Neutrophils % 85.8 H POC ABG pO2 Creatinine 0.6 L Glucose 113 H Magnesium NT-Pro-B Natriuret Pep 1352 H Total Protein Albumin 10/21/18 10/21/18 04:34 14:38 MCH Lymph % (Auto) Lymph # Seg Neutrophils % POC ABG pO2 69 L Creatinine 0.6 L Glucose 148 H Magnesium 2.50 H NT-Pro-B Natriuret Pep Total Protein 6.2 L Albumin 3.5 L
[2018-10-22] MEDS: DELTASONE PO SCH (15:56)
[2018-10-22] MEDS ORDERED: ATIVAN IV NR (16:00)
[2018-10-22] MEDS: ZESTRIL PO SCH (18:15)
[2018-10-22] MEDS: PROCARDIA XL PO SCH (21:59)
[2018-10-22] MEDS: DESYREL PO SCH (21:59)
[2018-10-23] MEDS: DUONEB *Not for PRN Use IH SCH ×4 (02:25→20:36)
--- NOTE | 2018-10-23 09:11 | Progress Note ---
Assessment and Plan Assessment and plan: 73-year-old woman with history of dementia. The patient was brought into the hospital for shortness of breath wheezing and cough. Chest x-ray is negative for infiltrate CT abdomen shows abdominal wall hernia, but no obstruction or incarceration, also shows right moderate -severe hydronephrosis with some transition point at the right UPJ. Also large amount of stool in the descending colon and rectum consistent with fecal impaction Diagnoses COPD exacerbation Acute metabolic encephalopathy Mild moderate to severe right hydronephrosis Fecal impaction Dementia with behavioral disturbance Plan Continue steroids nebs and RT consult, pulmonary consult appreciated Urology and IR consult for management of obstructive uropathy, appreciated, needs nuc renal scan Patient had bedside enema, has been having bowel movements now. 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 History Interval history: Review of systems Constitutional: No fevers, no malaise, no joint pains CVS: No chest pain, no orthopnea, no dyspnea on exertion, no pedal edema GI: No abdominal pain, no diarrhea, no vomiting, is yet to have a bowel movem ents Respiratory: denies sob Hospitalist Physical - Physical exam Narrative exam: General.: Appears well, no distress, nontoxic HEENT: Moist mucous membranes, extraocular muscles intact, no lymphadenopathy Neck: supple Cardiac: S1-S2 heard Lungs: Wheezing, diminished air entry Abdomen: soft , nontender, nondistended, bowel sounds positive Extremities: no edema clubbing or cyanosis Skin: no rash or lesions Neurologic: no gross focal deficits, demented Psych: flight of ideas, confused, agitated, disorganized, lacks insight - Constitutional Vitals: Temp Pulse Resp BP Pulse Ox 98.3 F 94 H 18 148/89 97 10/23/18 08:49 10/23/18 08:49 10/23/18 08:49 10/23/18 08:49 10/23/18 08:49 General appearance: Present: no acute distress (multiple chronic issues which have been present for years) Results - Labs CBC & Chem 7: 10/21/18 04:34 10/21/18 04:34 Labs: Laboratory Last Values WBC 8.1 K/mm3 (4.5-11.0) 10/21/18 04:34 RBC 4.52 M/mm3 (3.65-5.03) 10/21/18 04:34 Hgb 12.2 gm/dl (10.1-14.3) 10/21/18 04:34 Hct 37.6 % (30.3-42.9) 10/21/18 04:34 MCV 83 fl (79-97) 10/21/18 04:34 MCH 27 pg (28-32) L 10/21/18 04:34 MCHC 33 % (30-34) 10/21/18 04:34 RDW 15.0 % (13.2-15.2) 10/21/18 04:34 Plt Count 170 K/mm3 (140-440) 10/21/18 04:34 Lymph % (Auto) 8.8 % (13.4-35.0) L 10/21/18 04:34 [place] % (Auto) 5.4 % (0.0-7.3) 10/21/18 04:34 Eos % (Auto) 0.0 % (0.0-4.3) 10/21/18 04:34 Baso % (Auto) 0.0 % (0.0-1.8) 10/21/18 04:34 Lymph # 0.7 K/mm3 (1.2-5.4) L 10/21/18 04:34 [place] # 0.4 K/mm3 (0.0-0.8) 10/21/18 04:34 Eos # 0.0 K/mm3 (0.0-0.4) 10/21/18 04:34 Baso # 0.0 K/mm3 (0.0-0.1) 10/21/18 04:34 Seg Neutrophils % 85.8 % (40.0-70.0) H 10/21/18 04:34 Seg Neutrophils # 6.9 K/mm3 (1.8-7.7) 10/21/18 04:34 PT 14.4 Sec. (12.2-14.9) 10/20/18 18:04 INR 1.05 (0.87-1.13) 10/20/18 18:04 POC ABG pH 7.427 (7.35-7.45) 10/21/18 14:38 POC ABG pCO2 38.3 (35-45) 10/21/18 14:38 POC ABG pO2 69 (80-105) L 10/21/18 14:38 POC ABG HCO3 25.3 (22-26 mml/L) 10/21/18 14:38 POC ABG Total CO2 26 (23-27mmol/L) 10/21/18 14:38 POC ABG O2 Sat 94 10/21/18 14:38 POC ABG Base Excess 1 ((-2) - (+3)mmol/L) 10/21/18 14:38 FiO2 21 % 10/21/18 14:38 Sodium 144 mmol/L (137-145) 10/21/18 04:34 Potassium 3.9 mmol/L (3.6-5.0) 10/21/18 04:34 Chloride 105.3 mmol/L (98-107) 10/21/18 04:34 Carbon Dioxide 24 mmol/L (22-30) 10/21/18 04:34 Anion Gap 19 mmol/L 10/21/18 04:34 BUN 15 mg/dL (7-17) 10/21/18 04:34 Creatinine 0.6 mg/dL (0.7-1.2) L 10/21/18 04:34 Estimated GFR > 60 ml/min 10/21/18 04:34 BUN/Creatinine Ratio 25 % 10/21/18 04:34 Glucose 148 mg/dL (65-100) H 10/21/18 04:34 Lactic Acid 1.50 mmol/L (0.7-2.0) 10/20/18 18:04 Calcium 8.4 mg/dL (8.4-10.2) 10/21/18 04:34 Phosphorus 3.10 mg/dL (2.5-4.5) 10/21/18 04:34 Magnesium 2.50 mg/dL (1.7-2.3) H 10/21/18 04:34 Total Bilirubin 0.50 mg/dL (0.1-1.2) 10/21/18 04:34 AST 21 units/L (5-40) 10/21/18 04:34 ALT 15 units/L (7-56) 10/21/18 04:34 Alkaline Phosphatase 52 units/L (35-129) 10/21/18 04:34 Troponin T < 0.010 ng/mL (0.00-0.029) 10/20/18 18:04 NT-Pro-B Natriuret Pep 1352 pg/mL (0-900) H 10/20/18 18:04 Total Protein 6.2 g/dL (6.3-8.2) L 10/21/18 04:34 Albumin 3.5 g/dL (3.9-5) L 10/21/18 04:34 Albumin/Globulin Ratio 1.3 % 10/21/18 04:34 Urine Color Yellow (Yellow) 10/20/18 17:55 Urine Turbidity Clear (Clear) 10/20/18 17:55 Urine pH 6.0 (5.0-7.0) 10/20/18 17:55 Ur Specific [place] 1.009 (1.003-1.030) 10/20/18 17:55 Urine Protein 30 mg/dl mg/dL (Negative) 10/20/18 17:55 Urine Glucose (UA) Neg mg/dL (Negative) 10/20/18 17:55 Urine Ketones Neg mg/dL (Negative) 10/20/18 17:55 Urine Blood Neg (Negative) 10/20/18 17:55 Urine Nitrite Neg (Negative) 10/20/18 17:55 Urine Bilirubin Neg (Negative) 10/20/18 17:55 Urine Urobilinogen < 2.0 mg/dL (<2.0) 10/20/18 17:55 Ur Leukocyte Esterase Neg (Negative) 10/20/18 17:55 Urine WBC (Auto) < 1.0 /HPF (0.0-6.0) 10/20/18 17:55 Urine RBC (Auto) 1.0 /HPF (0.0-6.0) 10/20/18 17:55 U Epithel Cells (Auto) 2.0 /HPF (0-13.0) 10/20/18 17:55 Urine Bacteria (Auto) 1+ /HPF (Negative) 10/20/18 17:55 Urine Mucus Few /HPF 10/20/18 17:55 Active Medications - Current Medications Current Medications: Generic Name Dose Route Start Last Admin Trade Name Freq PRN Reason Stop Dose Admin Acetaminophen 650 mg 10/20/18 23:15 Tylenol PO Q4H PRN Pain MILD(1-3)/Fever >100.5/MALIK Al Hydrox/Mg Hydrox/Simethicone 30 ml 10/20/18 23:15 Alum-Mag Hydrox-Simeth [id number]/5ml PO Q4H PRN Indigestion Albuterol/Ipratropium 1 ampul 10/21/18 02:00 10/23/18 02:25 Duoneb *Not For Prn Use* IH 1 ampul Q6HRT [facility] Administration Budesonide 0.5 mg 10/21/18 08:00 10/22/18 21:25 Pulmicort IH 0.5 mg Q12HRT [facility] Administration Docusate Sodium 100 mg 10/21/18 10:00 10/22/18 21:59 Colace PO 100 mg BID [facility]ACA Administration Enoxaparin Sodium 40 mg 10/21/18 10:00 10/22/18 10:43 Lovenox SUB-Q 40 mg QDAY [facility] Administration Famotidine 20 mg 10/21/18 10:00 10/22/18 21:59 Pepcid PO 20 mg BID [facility] Administration Haloperidol 1 mg 10/22/18 11:36 Haldol PO Q6H PRN Agitation Hydralazine HCl 10 mg 10/22/18 02:46 10/22/18 19:42 Apresoline IV 10 mg Q4H PRN Administration SBP > 160 or DBP > 110 Sodium Chloride 1,000 mls @ 125 mls/hr 10/20/18 23:45 Nacl 0.45% 1000 Ml IV DIRECT [facility]ACA Lisinopril 40 mg 10/22/18 16:00 10/22/18 18:15 Zestril PO 40 mg QDAY [facility] Administration Lorazepam 2 mg 10/23/18 10:00 Ativan IM Q4HR PRN Agitation Nifedipine 60 mg 10/22/18 22:00 10/22/18 21:59 Procardia Xl PO 60 mg Q12HR [facility] Administration Ondansetron HCl 4 mg 10/20/18 23:15 Zofran IV Q8H PRN Nausea And Vomiting Oxycodone/Acetaminophen 1 tab 10/20/18 23:15 10/22/18 10:58 Percocet 5/325 PO 1 tab Q6H PRN Administration Pain, Moderate (4-6) Polyethylene Glycol 17 gm 10/21/18 10:00 10/22/18 21:58 Miralax 3350 PO 17 gm BID FLACA Administration Prednisone 30 mg 10/22/18 14:00 10/22/18 15:56 Deltasone PO 30 mg QDAY [facility] Administration Senna 8.6 mg 10/21/18 10:00 10/22/18 21:59 Senokot PO 8.6 mg Q12HR [facility]ACA Administration Sodium Chloride 10 ml 10/21/18 10:00 10/22/18 22:00 Sodium Chloride Flush Syringe 10 Ml IV 10 ml BID [facility]ACA Administration Sodium Chloride 10 ml 10/20/18 23:15 Sodium Chloride Flush Syringe 10 Ml IV PRN PRN LINE FLUSH Trazodone HCl 50 mg 10/22/18 22:00 10/22/18 21:59 Desyrel PO 50 mg QHS [facility] Administration Zolpidem Tartrate 5 mg 10/20/18 23:15 Ambien PO QHS PRN Insomnia
[2018-10-23] MEDS: LOVENOX SUB-Q SCH (09:49)
[2018-10-23] MEDS: DELTASONE PO SCH (09:49)
[2018-10-23] MEDS: PROCARDIA XL PO SCH ×2 (09:50→21:58)
[2018-10-23] MEDS: SENOKOT PO SCH ×2 (09:50→21:58)
[2018-10-23] MEDS: COLACE PO SCH ×2 (09:50→21:59)
[2018-10-23] MEDS: SODIUM CHLORIDE FLUSH SYRINGE 10 ML IV SCH ×2 (09:51→21:58)
[2018-10-23] MEDS: ZESTRIL PO SCH (09:51)
[2018-10-23] MEDS: PEPCID PO SCH ×2 (09:52→21:58)
[2018-10-23] MEDS ORDERED: ATIVAN IM PRN (10:00)
[2018-10-23] MEDS: PULMICORT IH SCH ×2 (10:42→20:36)
[2018-10-23] MEDS ORDERED: ATIVAN IV PRN (10:56)
[2018-10-23] MEDS ORDERED: ATIVAN IV ONE (11:02)
[2018-10-23] MEDS: MIRALAX 3350 PO SCH ×2 (11:04→21:58)
[2018-10-23] MEDS ORDERED: ATIVAN IV NR (11:30)
[2018-10-23] MEDS ORDERED: LASIX IV ONE (13:00)
--- NOTE | 2018-10-23 14:16 | Nuclear Medicine Report ---
EXAM: NM RENAL SCAN ROUTINE HISTORY: R kidney failure TECHNIQUE: A nuclear medicine renal scan with Lasix was performed in the usual fashion with the admin istration of 5.95 mCi of technetium 99 MAG3 intravenously. Lasix (20 milligrams slow IV push) was ad ministered at 40 minutes. Plantar and coronal SPECT imaging was performed in the usual fashion. Time activity curves were performed. COMPARISON: None available. FINDINGS: There is suggestion of delayed and/or diminished bilateral renal perfusion, which could represent seq uela of renal artery stenosis, and/or increased resistance secondary to obstructive uropathy in the a ppropriate clinical setting. Correlation with dedicated vascular imaging (e.g., CT and/or MRA and/or conventional angiography) for further assessment as clinically warranted. There is evidence for delayed renal cortical parenchymal concentration of radionuclide, which may rep resent sequela of decreased inflow (e.g. renal artery stenosis) and/or increased resistance (e.g. obs tructive uropathy). There is suggestion of left renal dominance. The right kidney contributes approximately 77.6% of tota l renal function, and the left kidney contributes approximately 22.4% of total renal function. There is no gross renal cortical parenchymal defect reminiscent of a gross space occupying lesions se en. The renal collecting systems appear prominent bilaterally, left greater than right, in keeping wi th moderate to severe hydronephrosis or sequela of obstructive uropathy. There is appropriate respons e of renal excretion with the administration of Lasix. The time to half renal activity measures 41.8 minutes on the left (and not measured on the right). Ti me to maximum renal activity is 31 minutes on the left and 39 minutes on the right. The urinary bladder shows progressive filling, with mild distention. No urine extravasation is seen. IMPRESSION: 1. Delayed and/or diminished bilateral renal perfusion, which could represent sequela of renal arter y stenosis, and/or increased resistance secondary to obstructive uropathy in the appropriate clinical setting. Correlation with dedicated vascular imaging (e.g., CT and/or MRA and/or conventional angiog ramin) for further assessment as clinically warranted. 2. Delayed renal cortical parenchymal concentration of radionuclide, which may represent sequela of decreased inflow (e.g. renal artery stenosis) and/or increased resistance (e.g. obstructive uropathy) . 3. Marked bilateral hydronephrosis and hydroureter in keeping with bilateral obstructive uropathy in the appropriate clinical setting; DDX includes functional obstruction secondary to urinary bladder d istention and reflux uropathy in the appropriate clinical setting. 4. Appropriate enhancement of renal excretion is seen in both kidneys after the administration of La six. 5. No urine extravasation seen. This document is electronically signed by Virginia Daily MD., October 23 2018 02:14:45 PM ET
--- NOTE | 2018-10-23 18:18 | Consultation ---
History of Present Illness - Reason for Consult Consult date: 10/23/18 Reason for consult: psych eval - Chief Complaint Chief complaint: "How did I get here?" - History of Present Psychiatric Illness 73 year old MERLIN F seen on the URI unit for psychiatric evaluation. She was brought to the hospital by emergency medical services with a primary complaint of cough, wheezing, shortness of breath. She has diagnoses of COPD and hyd ronephrosis. Her nurse reports she is intermittently confused and agitated/argumentative. She recently received ativan. On interview she is alert and oriented to person, place, and time. She read the clock and expressed that she wanted the white board changed to reflect the name of the nurse who is working this shift. She asks for 2 cups of coffee. She denies having a severe persistent mental illness. She reports her brother has schizophrenia. She reports depression and says she deals with it. Her daughter one year ago and her years ago. She denies SI/HI/AVH. Medications and Allergies Allergies Allergy/AdvReac Type Severity Reaction Status Date / Time No Known Allergies Allergy Unverified 10/20/18 19:18 Home Medications Medication Instructions Recorded Confirmed Last Taken Type No Known Home Medications [No 10/21/18 10/21/18 Unknown History Reported Home Medications] Active Meds: Active Medications Acetaminophen (Tylenol) 650 mg PO Q4H PRN PRN Reason: Pain MILD(1-3)/Fever >100.5/MALIK Al Hydrox/Mg Hydrox/Simethicone (Alum-Mag Hydrox-Simeth [id number]/5ml) 30 ml PO Q4H PRN PRN Reason: Indigestion Albuterol/Ipratropium (Duoneb *Not For Prn Use*) 1 ampul IH Q6HRT [facility] Last Admin: 10/23/18 15:25 Dose: 1 ampul Documented by: Budesonide (Pulmicort) 0.5 mg IH Q12HRT [facility] Last Admin: 10/23/18 10:42 Dose: Not Given Documented by: Docusate Sodium (Colace) 100 mg PO BID [facility] Last Admin: 10/23/18 09:50 Dose: 100 mg Documented by: Enoxaparin Sodium (Lovenox) 40 mg SUB-Q QDAY [facility] Last Admin: 04/06/19 09:49 Dose: 40 mg Documented by: Famotidine (Pepcid) 20 mg PO BID [facility] Last Admin: 10/23/18 09:52 Dose: 20 mg Documented by: Haloperidol (Haldol) 1 mg PO Q6H PRN PRN Reason: Agitation Hydralazine HCl (Apresoline) 10 mg IV Q4H PRN PRN Reason: SBP > 160 or DBP > 110 Last Admin: 10/22/18 19:42 Dose: 10 mg Documented by: Sodium Chloride (Nacl 0.45% 1000 Ml) 1,000 mls @ 125 mls/hr IV DIRECT [facility] Last Admin: 10/23/18 13:49 Dose: 125 mls/hr Documented by: Lisinopril (Zestril) 40 mg PO QDAY [facility] Last Admin: 10/23/18 09:51 Dose: 40 mg Documented by: Lorazepam (Ativan) 2 mg IV ONCE NR Stop: 10/23/18 23:59 Nifedipine (Procardia Xl) 60 mg PO Q12HR [facility] Last Admin: 10/23/18 09:50 Dose: 60 mg Documented by: Ondansetron HCl (Zofran) 4 mg IV Q8H PRN PRN Reason: Nausea And Vomiting Oxycodone/Acetaminophen (Percocet 5/325) 1 tab PO Q6H PRN PRN Reason: Pain, Moderate (4-6) Last Admin: 10/22/18 10:58 Dose: 1 tab Documented by: Polyethylene Glycol (Miralax 3350) 17 gm PO BID [facility] Last Admin: 10/23/18 11:04 Dose: Not Given Documented by: Prednisone (Deltasone) 30 mg PO QDAY [facility] Last Admin: 10/23/18 09:49 Dose: 30 mg Documented by: Senna (Senokot) 8.6 mg PO Q12HR [facility] Last Admin: 10/23/18 09:50 Dose: 8.6 mg Documented by: Sodium Chloride (Sodium Chloride Flush Syringe 10 Ml) 10 ml IV BID [facility] Last Admin: 10/23/18 09:51 Dose: 10 ml Documented by: Sodium Chloride (Sodium Chloride Flush Syringe 10 Ml) 10 ml IV PRN PRN PRN Reason: LINE FLUSH Trazodone HCl (Desyrel) 50 mg PO QHS [facility] Last Admin: 10/22/18 21:59 Dose: 50 mg Documented by: Zolpidem Tartrate (Ambien) 5 mg PO QHS PRN PRN Reason: Insomnia Past psychiatric history - Past Medical History Past Medical History: COPD - past Psychiatric treatment and history psychiatric treatment history: denies - Social History Social history: Lives alone (rents a room) Mental Status Exam - Vital signs Last Vital Signs Temp 98.3 F 10/23/18 08:49 Pulse 92 H 10/23/18 15:32 Resp 16 10/23/18 15:32 BP 148/89 10/23/18 08:49 Pulse Ox 96 10/23/18 10:41 - Exam Orientation: time, place, person Affect: depressed Mood: congruent with affect Thought content: other (intermittently confused and says she is somewhere else) Thought Process: Disoriented (intermittently) Perceptions: other (denies currently) Speech: normal rate and pattern Concentration: distractible Motor activity: normal Level of consciousness: alert Memory: Intact (variable) Appetite: decreased Interaction: cooperative Results Result Diagrams: 10/21/18 04:34 10/21/18 04:34 All other labs normal. Assessment and Plan Assessment and plan: Impression: Mental status changes are likely related to encephalopathy as she is intermittently confused. Although, dementia is not excluded. r/o major depressive disorder but this is currently not the primary concern Recommendations: She has hall ordered PRN for agitation. No changes to the current recommendation for medications with exceptions stated below: 1. Frequently reorient patient and involve him/her in their care (simple expla nations of procedures, tests, medications). 2. Lights on and shades open during daytime hours. 3. Write date and goals of care in a visible place. 4. Try to avoid unnecessary interruptions to sleep during nighttime hours. 5. Obtain glasses, hearing aids from home if patient uses these at baseline. 6. Avoid medications that may exacerbate delirium (especially narcotics, benzodiazepines, barbiturates, ambien, lunesta, and medications with excessive anticholinergic properties). dispo: psych will follow up in [address] Garrido
[2018-10-23] MEDS: DESYREL PO SCH (21:58)
--- NOTE | 2018-10-23 21:59 | Progress Note ---
Assessment and Plan Patient awake. Resting on 2 litres O2.O2 saturation 100%. No acute respiratory distress. - Patient Problems (1) Delirium Current Visit: Yes Status: Acute Plan to address problem: Management as per primary care and neurology. (2) Hernia of anterior abdominal wall Current Visit: Yes Status: Acute Plan to address problem: Management as per primary care and surgery. (3) Hydronephrosis, right Current Visit: Yes Status: Acute Plan to address problem: Management as per primary care and urology. (4) Hypoxia Current Visit: Yes Status: Acute Plan to address problem: Improved.O2 saturation 100% on 2 litres O2. Subjective Date of service: 10/23/18 Interval history: Patient awake. Resting on 2 litres O2.O2 saturation 100%. No acute respiratory distress. Objective Vital Signs - 12hr 10/23/18 10/23/18 10/23/18 10:00 10:41 10:47 Temperature Pulse Rate Pulse Rate [ 76 82 Bilateral] Respiratory Rate Respiratory 16 17 Rate [Bilateral ] Blood Pressure O2 Sat by Pulse 98 96 Oximetry 10/23/18 10/23/18 10/23/18 13:32 15:25 15:32 Temperature 98.4 F Pulse Rate 98 H Pulse Rate [ 86 92 H Bilateral] Respiratory 20 Rate Respiratory 16 16 Rate [Bilateral ] Blood Pressure 128/84 O2 Sat by Pulse 99 Oximetry 10/23/18 10/23/18 10/23/18 19:31 20:25 20:36 Temperature 98.9 F Pulse Rate 85 Pulse Rate [ 90 95 H Bilateral] Respiratory 20 Rate Respiratory 16 16 Rate [Bilateral ] Blood Pressure 127/73 O2 Sat by Pulse 100 100 Oximetry Constitutional: no acute distress, alert Eyes: non-icteric ENT: oropharynx moist Neck: supple, no lymphadenopathy Ascultation: Bilateral: diminished breath sounds Cardiovascular: regular rate and rhythm Gastrointestinal: normoactive bowel sounds, soft, non-tender Integumentary: normal Extremities: no cyanosis, no edema Neurologic: non-focal exam, pupils equal and round Psychiatric: depressed CBC and BMP: 10/21/18 04:34 10/21/18 04:34 ABG, PT/INR, D-dimer: ABG POC ABG pH 7.427 (7.35-7.45) 10/21/18 14:38 POC ABG pCO2 38.3 (35-45) 10/21/18 14:38 POC ABG pO2 69 (80-105) L 10/21/18 14:38 POC ABG HCO3 25.3 (22-26 mml/L) 10/21/18 14:38 POC ABG Total CO2 26 (23-27mmol/L) 10/21/18 14:38 POC ABG O2 Sat 94 10/21/18 14:38 PT/INR, D-dimer PT 14.4 Sec. (12.2-14.9) 10/20/18 18:04 INR 1.05 (0.87-1.13) 10/20/18 18:04 Abnormal lab findings: Abnormal Labs 10/20/18 10/20/18 10/21/18 18:04 18:04 04:34 MCH 27 L 27 L Lymph % (Auto) 8.8 L Lymph # 0.7 L Seg Neutrophils % 85.8 H POC ABG pO2 Creatinine 0.6 L Glucose 113 H Magnesium NT-Pro-B Natriuret Pep 1352 H Total Protein Albumin 10/21/18 10/21/18 04:34 14:38 MCH Lymph % (Auto) Lymph # Seg Neutrophils % POC ABG pO2 69 L Creatinine 0.6 L Glucose 148 H Magnesium 2.50 H NT-Pro-B Natriuret Pep Total Protein 6.2 L Albumin 3.5 L Chest x-ray: report reviewed (Reported hyperinflation, No consolidations.), image reviewed
[2018-10-24] MEDS: DUONEB *Not for PRN Use IH SCH ×4 (03:27→20:00)
[2018-10-24] MEDS: PULMICORT IH SCH ×2 (07:54→20:00)
--- NOTE | 2018-10-24 08:43 | Progress Note ---
Assessment and Plan Assessment and plan: 73-year-old woman with history of dementia. The patient was brought into the hospital for shortness of breath wheezing and cough. Chest x-ray is negative for infiltrate CT abdomen shows abdominal wall hernia, but no obstruction or incarceration, also shows right moderate -severe hydronephrosis with some transition point at the right UPJ. Also large amount of stool in the descending colon and rectum consistent with fecal impaction Diagnoses COPD exacerbation Acute metabolic encephalopathy Mild moderate to severe right hydronephrosis Fecal impaction Dementia with behavioral disturbance Plan Continue steroids nebs and RT consult, pulmonary consult appreciated Urology and IR consult for management of obstructive uropathy, appreciated, needs nuc renal scan Patient had bedside enema, has been having bowel movements now. cont miralax bid Mental health consult, she has been agitated, and verbally abusive to staff, trazodone hs, and haldol prn -sp Nuc renal scan, awaiting IR and urology fup, she does not have capacity to make her own decisions, consents must be obtained from her sister, who is giving permission to sedate her to do procedures and tests DVT prophylaxis with Lovenox NOK is Carmen Guerrier contact: [phone]. Disp; [facility], placement pending History Interval history: Review of systems Constitutional: No fevers, no malaise, no joint pains CVS: No chest pain, no orthopnea, no dyspnea on exertion, no pedal edema GI: No abdominal pain, no diarrhea, no vomiting, constipation is resolved Respiratory: denies sob Hospitalist Physical - Physical exam Narrative exam: General.: Appears well, no distress, nontoxic HEENT: Moist mucous membranes, extraocular muscles intact, no lymphadenopathy Neck: supple Cardiac: S1-S2 heard Lungs: CTA Abdomen: soft , nontender, nondistended, bowel sounds positive Extremities: no edema clubbing or cyanosis Skin: no rash or lesions Neurologic: no gross focal deficits, demented Psych: flight of ideas, confused, agitated, disorganized, lacks insight - Constitutional Vitals: Temp Pulse Resp BP Pulse Ox 98.7 F 78 18 136/72 97 10/24/18 08:02 10/24/18 08:02 10/24/18 08:02 10/24/18 08:02 10/24/18 08:02 General appearance: Present: no acute distress (multiple chronic issues which have been present for years) Results - Labs CBC & Chem 7: 10/21/18 04:34 10/21/18 04:34 Labs: Laboratory Last Values WBC 8.1 K/mm3 (4.5-11.0) 10/21/18 04:34 RBC 4.52 M/mm3 (3.65-5.03) 10/21/18 04:34 Hgb 12.2 gm/dl (10.1-14.3) 10/21/18 04:34 Hct 37.6 % (30.3-42.9) 10/21/18 04:34 MCV 83 fl (79-97) 10/21/18 04:34 MCH 27 pg (28-32) L 10/21/18 04:34 MCHC 33 % (30-34) 10/21/18 04:34 RDW 15.0 % (13.2-15.2) 10/21/18 04:34 Plt Count 170 K/mm3 (140-440) 10/21/18 04:34 Lymph % (Auto) 8.8 % (13.4-35.0) L 10/21/18 04:34 Crawford % (Auto) 5.4 % (0.0-7.3) 10/21/18 04:34 Eos % (Auto) 0.0 % (0.0-4.3) 10/21/18 04:34 Baso % (Auto) 0.0 % (0.0-1.8) 10/21/18 04:34 Lymph # 0.7 K/mm3 (1.2-5.4) L 10/21/18 04:34 Crawford # 0.4 K/mm3 (0.0-0.8) 10/21/18 04:34 Eos # 0.0 K/mm3 (0.0-0.4) 10/21/18 04:34 Baso # 0.0 K/mm3 (0.0-0.1) 10/21/18 04:34 Seg Neutrophils % 85.8 % (40.0-70.0) H 10/21/18 04:34 Seg Neutrophils # 6.9 K/mm3 (1.8-7.7) 10/21/18 04:34 PT 14.4 Sec. (12.2-14.9) 10/20/18 18:04 INR 1.05 (0.87-1.13) 10/20/18 18:04 POC ABG pH 7.427 (7.35-7.45) 10/21/18 14:38 POC ABG pCO2 38.3 (35-45) 10/21/18 14:38 POC ABG pO2 69 (80-105) L 10/21/18 14:38 POC ABG HCO3 25.3 (22-26 mml/L) 10/21/18 14:38 POC ABG Total CO2 26 (23-27mmol/L) 10/21/18 14:38 POC ABG O2 Sat 94 10/21/18 14:38 POC ABG Base Excess 1 ((-2) - (+3)mmol/L) 10/21/18 14:38 FiO2 21 % 10/21/18 14:38 Sodium 144 mmol/L (137-145) 10/21/18 04:34 Potassium 3.9 mmol/L (3.6-5.0) 10/21/18 04:34 Chloride 105.3 mmol/L (98-107) 10/21/18 04:34 Carbon Dioxide 24 mmol/L (22-30) 10/21/18 04:34 Anion Gap 19 mmol/L 10/21/18 04:34 BUN 15 mg/dL (7-17) 10/21/18 04:34 Creatinine 0.6 mg/dL (0.7-1.2) L 10/21/18 04:34 Estimated GFR > 60 ml/min 10/21/18 04:34 BUN/Creatinine Ratio 25 % 10/21/18 04:34 Glucose 148 mg/dL (65-100) H 10/21/18 04:34 Lactic Acid 1.50 mmol/L (0.7-2.0) 10/20/18 18:04 Calcium 8.4 mg/dL (8.4-10.2) 10/21/18 04:34 Phosphorus 3.10 mg/dL (2.5-4.5) 10/21/18 04:34 Magnesium 2.50 mg/dL (1.7-2.3) H 10/21/18 04:34 Total Bilirubin 0.50 mg/dL (0.1-1.2) 10/21/18 04:34 AST 21 units/L (5-40) 10/21/18 04:34 ALT 15 units/L (7-56) 10/21/18 04:34 Alkaline Phosphatase 52 units/L (35-129) 10/21/18 04:34 Troponin T < 0.010 ng/mL (0.00-0.029) 10/20/18 18:04 NT-Pro-B Natriuret Pep 1352 pg/mL (0-900) H 10/20/18 18:04 Total Protein 6.2 g/dL (6.3-8.2) L 10/21/18 04:34 Albumin 3.5 g/dL (3.9-5) L 10/21/18 04:34 Albumin/Globulin Ratio 1.3 % 10/21/18 04:34 Urine Color Yellow (Yellow) 10/20/18 17:55 Urine Turbidity Clear (Clear) 10/20/18 17:55 Urine pH 6.0 (5.0-7.0) 10/20/18 17:55 Ur Specific [place] 1.009 (1.003-1.030) 10/20/18 17:55 Urine Protein 30 mg/dl mg/dL (Negative) 10/20/18 17:55 Urine Glucose (UA) Neg mg/dL (Negative) 10/20/18 17:55 Urine Ketones Neg mg/dL (Negative) 10/20/18 17:55 Urine Blood Neg (Negative) 10/20/18 17:55 Urine Nitrite Neg (Negative) 10/20/18 17:55 Urine Bilirubin Neg (Negative) 10/20/18 17:55 Urine Urobilinogen < 2.0 mg/dL (<2.0) 10/20/18 17:55 Ur Leukocyte Esterase Neg (Negative) 10/20/18 17:55 Urine WBC (Auto) < 1.0 /HPF (0.0-6.0) 10/20/18 17:55 Urine RBC (Auto) 1.0 /HPF (0.0-6.0) 10/20/18 17:55 U Epithel Cells (Auto) 2.0 /HPF (0-13.0) 10/20/18 17:55 Urine Bacteria (Auto) 1+ /HPF (Negative) 10/20/18 17:55 Urine Mucus Few /HPF 10/20/18 17:55 Active Medications - Current Medications Current Medications: Generic Name Dose Route Start Last Admin Trade Name Freq PRN Reason Stop Dose Admin Acetaminophen 650 mg 10/20/18 23:15 Tylenol PO Q4H PRN Pain MILD(1-3)/Fever >100.5/MALIK Al Hydrox/Mg Hydrox/Simethicone 30 ml 10/20/18 23:15 Alum-Mag Hydrox-Simeth 152-103-16zy/5ml PO Q4H PRN Indigestion Albuterol/Ipratropium 1 ampul 10/21/18 02:00 10/24/18 07:55 Duoneb *Not For Prn Use* IH 1 ampul Q6HRT FLACA Administration Budesonide 0.5 mg 10/21/18 08:00 10/24/18 07:54 Pulmicort IH 0.5 mg Q12HRT FLACA Administration Docusate Sodium 100 mg 10/21/18 10:00 10/23/18 21:59 Colace PO 100 mg BID LFACA Administration Enoxaparin Sodium 40 mg 10/21/18 10:00 10/23/18 09:49 Lovenox SUB-Q 40 mg QDAY FLACA Administration Famotidine 20 mg 10/21/18 10:00 10/23/18 21:58 Pepcid PO 20 mg BID FLACA Administration Haloperidol 1 mg 10/22/18 11:36 Haldol PO Q6H PRN Agitation Hydralazine HCl 10 mg 10/22/18 02:46 10/22/18 19:42 Apresoline IV 10 mg Q4H PRN Administration SBP > 160 or DBP > 110 Sodium Chloride 1,000 mls @ 125 mls/hr 10/20/18 23:45 10/23/18 13:49 Nacl 0.45% 1000 Ml IV 125 mls/hr DIRECT FLACA Administration Lisinopril 40 mg 10/22/18 16:00 10/23/18 09:51 Zestril PO 40 mg QDAY FLACA Administration Nifedipine 60 mg 10/22/18 22:00 10/23/18 21:58 Procardia Xl PO 60 mg Q12HR FLACA Administration Ondansetron HCl 4 mg 10/20/18 23:15 Zofran IV Q8H PRN Nausea And Vomiting Oxycodone/Acetaminophen 1 tab 10/20/18 23:15 10/22/18 10:58 Percocet 5/325 PO 1 tab Q6H PRN Administration Pain, Moderate (4-6) Polyethylene Glycol 17 gm 10/21/18 10:00 10/23/18 21:58 Miralax 3350 PO 17 gm BID FLACA Administration Prednisone 30 mg 10/22/18 14:00 10/23/18 09:49 Deltasone PO 30 mg QDAY FLACA Administration Senna 8.6 mg 10/21/18 10:00 10/23/18 21:58 Senokot PO 8.6 mg Q12HR FLACA Administration Sodium Chloride 10 ml 10/21/18 10:00 10/23/18 21:58 Sodium Chloride Flush Syringe 10 Ml IV 10 ml BID FLACA Administration Sodium Chloride 10 ml 10/20/18 23:15 Sodium Chloride Flush Syringe 10 Ml IV PRN PRN LINE FLUSH Trazodone HCl 50 mg 10/22/18 22:00 10/23/18 21:58 Desyrel PO 50 mg QHS FLACA Administration Zolpidem Tartrate 5 mg 10/20/18 23:15 Ambien PO QHS PRN Insomnia
--- NOTE | 2018-10-24 08:49 | Event Note ---
Date: 10/24/18 Reviewed renal scan. Multiple reporting errors noted such as bilateral hydronephrosis (only right sided), and that "There is suggestion of left renal dominance. The right kidney contributes approximately 77.6% of total renal function, and the left kidney contributes approximately 22.4% of total renal function." It is the left kidney that contributes 78% function. Right kidney is approximately 22% function. Given extensive comorbidities, patient will need outpatient urology referral to tertiary care center with renal scan images and report included, and CT included. Given the greater than 20% renal function, but the limited ability of the patient to followup, they can decide upon attempting to surgically correct the UPJ vs nephrectomy vs observation. Do not recommend percutaneous nephrostomy at this time as it will only complicate patient care.
[2018-10-24] MEDS: PEPCID PO SCH ×2 (10:27→22:53)
[2018-10-24] MEDS: SENOKOT PO SCH ×2 (10:27→22:53)
[2018-10-24] MEDS: PROCARDIA XL PO SCH ×2 (10:29→22:53)
[2018-10-24] MEDS: ZESTRIL PO SCH (10:29)
[2018-10-24] MEDS: COLACE PO SCH ×2 (10:29→22:53)
[2018-10-24] MEDS: LOVENOX SUB-Q SCH (10:29)
[2018-10-24] MEDS: MIRALAX 3350 PO SCH ×2 (10:30→22:53)
[2018-10-24] MEDS: DELTASONE PO SCH (10:30)
[2018-10-24] MEDS: SODIUM CHLORIDE FLUSH SYRINGE 10 ML IV SCH ×2 (10:31→22:54)
--- NOTE | 2018-10-24 10:48 | XRay Report ---
PROCEDURE: XR ABDOMEN 1V AP TECHNIQUE: KUB was performed HISTORY: fecal impaction COMPARISONS: CT 10/20/2018 demonstrating large anterior abdominal wall hernia containing both small bow el and colon. Previous bowel suture margin. Patient appears to be impacted. There is also significant bilateral hydronephrosis on the previous CT FINDINGS: KUB demonstrates air and stool within nonspecific bowel loops. Anatomy is altered due to the large an terior abdominal wall hernia. Lung bases are clear. Cannot assess for free air on this supine image o nly. Previous identified large rectal stool ball cannot be assessed with certainty due to the projection. IMPRESSION: Limited exam showing excess air and stool throughout the abdomen with limited ability to distinguish due to the large anterior abdominal wall hernia. Rectal stool ball cannot be seen. Recommend further assessment with CT or Gastrovue enema if there re kelsey a clinical question. This document is electronically signed by Karma Lazo MD., October 24 2018 10:46:18 AM ET
--- NOTE | 2018-10-24 17:55 | Progress Note ---
Assessment and Plan Patient awake. Resting on 2 litres O2.O2 saturation 100%. No acute respiratory distress. - Patient Problems (1) Delirium Status: Acute Plan to address problem: Management as per primary care and neurology. (2) Hernia of anterior abdominal wall Status: Acute Plan to address problem: Management as per primary care and surgery. (3) Hydronephrosis, right Status: Resolved Plan to address problem: Management as per primary care and urology. (4) Hypoxia Status: Acute Plan to address problem: Improved.O2 saturation 100% on 2 litres O2. Subjective Date of service: 10/24/18 Interval history: Patient awake. Resting on 2 litres O2.O2 saturation 100%. No acute respiratory distress. Objective Vital Signs - 12hr 10/24/18 10/24/18 10/24/18 08:02 08:05 08:15 Temperature 98.7 F Pulse Rate 78 Pulse Rate [ 73 74 Bilateral] Respiratory 18 Rate Respiratory 18 18 Rate [Bilateral ] Blood Pressure 136/72 O2 Sat by Pulse 97 Oximetry 10/24/18 10/24/18 10/24/18 09:45 10:29 13:44 Temperature 98.2 F Pulse Rate 78 82 Pulse Rate [ Bilateral] Respiratory 18 Rate Respiratory Rate [Bilateral ] Blood Pressure 136/72 108/65 O2 Sat by Pulse 97 95 Oximetry Constitutional: no acute distress, alert Eyes: non-icteric ENT: oropharynx moist Neck: supple, no lymphadenopathy Ascultation: Bilateral: diminished breath sounds Cardiovascular: regular rate and rhythm Gastrointestinal: normoactive bowel sounds, soft, non-tender Integumentary: normal Extremities: no cyanosis, no edema Neurologic: non-focal exam, pupils equal and round Psychiatric: depressed CBC and BMP: 10/21/18 04:34 10/21/18 04:34 ABG, PT/INR, D-dimer: ABG POC ABG pH 7.427 (7.35-7.45) 10/21/18 14:38 POC ABG pCO2 38.3 (35-45) 10/21/18 14:38 POC ABG pO2 69 (80-105) L 10/21/18 14:38 POC ABG HCO3 25.3 (22-26 mml/L) 10/21/18 14:38 POC ABG Total CO2 26 (23-27mmol/L) 10/21/18 14:38 POC ABG O2 Sat 94 10/21/18 14:38 PT/INR, D-dimer PT 14.4 Sec. (12.2-14.9) 10/20/18 18:04 INR 1.05 (0.87-1.13) 10/20/18 18:04 Abnormal lab findings: Abnormal Labs 10/20/18 10/20/18 10/21/18 18:04 18:04 04:34 MCH 27 L 27 L Lymph % (Auto) 8.8 L Lymph # 0.7 L Seg Neutrophils % 85.8 H POC ABG pO2 Creatinine 0.6 L Glucose 113 H Magnesium NT-Pro-B Natriuret Pep 1352 H Total Protein Albumin 10/21/18 10/21/18 04:34 14:38 MCH Lymph % (Auto) Lymph # Seg Neutrophils % POC ABG pO2 69 L Creatinine 0.6 L Glucose 148 H Magnesium 2.50 H NT-Pro-B Natriuret Pep Total Protein 6.2 L Albumin 3.5 L
--- NOTE | 2018-10-24 17:57 | Progress Note ---
Subjective - Reason for Consult Consult date: 10/24/18 Reason for consult: follow up - Chief Complaint Chief complaint: "Hi" 73 year old AA F seen on the URI unit for psychiatric evaluation. She was brought to the hospital by emergency medical services with a primary complaint of cough, wheezing, shortness of breath. She has diagnoses of COPD and hydronephrosis. She has been intermittently confused and agitated/argumentative. She denies SI/HI/AVH. She adamantly denies she has dementia and says, "I'm not that far gone." She is alert and oriented to person, place, and time. Mental Status Exam - Vital signs Last Vital Signs Temp 98.2 F 10/24/18 13:44 Pulse 82 10/24/18 13:44 Resp 18 10/24/18 13:44 BP 108/65 10/24/18 13:44 Pulse Ox 95 10/24/18 13:44 - Exam Narrative exam: Orientation: time, place, person Affect: depressed Mood: congruent with affect Thought content: other (intermittently confused) Thought Process: Disoriented (intermittently) Perceptions: other (denies currently) Speech: normal rate and pattern Concentration: distractible Motor activity: normal Level of consciousness: alert Memory: Intact (variable) Appetite: decreased Interaction: cooperative Mini mental status exam(if necessary): 18-23 Assessment and Plan Impression: Mental status changes are likely related to encephalopathy as she is intermittently confused. Although, dementia is not excluded. She adamantly denies being diagnosed with dementia and says "I'm not that far gone." r/o major depressive disorder but this is currently not the primary concern Recommendations: She has haldol ordered PRN for agitation. No changes to the current recommendation for medications with exceptions stated below: 1. Frequently reorient patient and involve him/her in their care (simple explanations of procedures, tests, medications). 2. Lights on and shades open during daytime hours. 3. Write date and goals of care in a visible place. 4. Try to avoid unnecessary interruptions to sleep during nighttime hours. 5. Obtain glasses, hearing aids from home if patient uses these at baseline. 6. Avoid medications that may exacerbate delirium (especially narcotics, benzodiazepines, barbiturates, ambien, lunesta, and medications with excessive anticholinergic properties). dispo: psych will follow up in [address] Garrido
[2018-10-24] MEDS: DESYREL PO SCH (22:53)
[2018-10-25] MEDS ORDERED: PROVENTIL IH PRN (00:24)
[2018-10-25] MEDS: PULMICORT IH SCH (08:13)
[2018-10-25] MEDS: DUONEB *Not for PRN Use IH SCH ×2 (08:13→13:26)
[2018-10-25] MEDS: LOVENOX SUB-Q SCH (09:07)
[2018-10-25] MEDS: DELTASONE PO SCH (09:07)
[2018-10-25] MEDS: PEPCID PO SCH (09:10)
[2018-10-25] MEDS: MIRALAX 3350 PO SCH (09:24)
[2018-10-25] MEDS: SENOKOT PO SCH (09:24)
[2018-10-25] MEDS: COLACE PO SCH (09:24)
[2018-10-25] MEDS: ZESTRIL PO SCH (09:26)
[2018-10-25] MEDS: PROCARDIA XL PO SCH (09:26)
--- NOTE | 2018-10-25 11:16 | Progress Note ---
Subjective - Reason for Consult Consult date: 10/25/18 Reason for consult: Psychiatry Follow-up - Chief Complaint Chief complaint: "Can you come back tomorrow" 73 year old AA F seen on the URI unit for psychiatric evaluation. Today the patient is calm, but asked me the provider to come back in 24 hours. She was observed talking on the telephone. I the provider told the patient I could return back to her room in a few minutes, she stated , "Come back tomorrow." Mental Status Exam - Vital signs Last Vital Signs Temp 98.0 F 10/25/18 07:55 Pulse 79 10/25/18 09:26 Resp 18 10/25/18 08:00 BP 119/76 10/25/18 09:26 Pulse Ox 91 10/25/18 07:55 - Exam Narrative exam: Unable to complete the MSE because the patient asked me to return in 24 hours. Assessment and Plan Impression: The patient asked me the the provider to return in 24 hours. Recommendation/Plan: Attempt to reassess the patient in 24 hours[address] Will staff with Dr Michael Garrido.
--- NOTE | 2018-10-25 11:37 | Progress Note ---
Subjective Date of service: 10/25/18 Interval history: CC -SOB for admission (CTAP rt hydro) Unable to get history from pt due to her inability to focus on my questions. Randomly complaining about the food & cussing for no reason again Most of history taken from chart review This is a 73-year-old female. Patient appears to have significant dementia. Poor historian and unable to give me any history. Most of the history and information obtained from review of her records and as per the ER physician's report. No friends, family available for collateral information at this time. As per the report and the records, The patient is brought to the hospital by emergency medical services with a primary complaint of cough, wheezing, shortness of breath. EMS gave steroids in the field, and albuterol.The patient also described urinary incontinence for one year. She denied dysuria. She also described bilateral nontraumatic thigh pain, which does not radiate, which she describes as "sciatica." CT abdomen and pelvis showed anterior abdominal wall hernia with Loops of bowel but no evidence of obstruction or incarceration, DJD spine. Also showed right moderate to severe hydronephrosis with some transition point at the right UPJ likely consistent with chronic UPJ obstruction. No kidney or ureteral calculi seen. Also large amount of stool in the descending colon and rectum consistent with fecal impaction. No bowel obstruction no air-fluid levels. Consult IR----Dr. Blevins - reviewed nuclear scan - It is the left kidney that contributes 78% function. Right kidney is approximately 22% function. abd soft does not appear in distress A/P chronic UPJ obstruction DJD spine no fever or elevated WBC - does not appear septic (no acute problem) Would not place indwelling stent (will develop stones, sepsis,etc if left in to long) I agree with Dr. Blevins - conservative therapy Given extensive comorbidities, patient will need outpatient urology referral to tertiary care center with renal scan images and report included, and CT included. Given the greater than 20% renal function, but the limited ability of the patient to followup, they can decide upon attempting to surgically correct the UPJ vs nephrectomy vs observation. Do not recommend percutaneous nephrostomy at this time as it will only complicate patient care. Objective - Constitutional Vitals: Vital Signs - 12hr 10/25/18 10/25/18 10/25/18 02:37 07:55 08:00 Temperature 97.8 F 98.0 F Pulse Rate 85 79 Pulse Rate [ 78 Bilateral] Respiratory 20 20 Rate Respiratory 18 Rate [Bilateral ] Blood Pressure 131/79 119/76 O2 Sat by Pulse 96 91 Oximetry 10/25/18 09:26 Temperature Pulse Rate 79 Pulse Rate [ Bilateral] Respiratory Rate Respiratory Rate [Bilateral ] Blood Pressure 119/76 O2 Sat by Pulse Oximetry - Labs CBC & Chem 7: 10/21/18 04:34 10/21/18 04:34 Medications & Allergies - Medications Allergies/Adverse Reactions: Allergies No Known Allergies Allergy (Unverified 10/20/18 19:18) Home Medications: Home Medications Medication Instructions Recorded Confirmed Last Taken Type No Known Home Medications [No 10/21/18 10/21/18 Unknown History Reported Home Medications] Active Medications: Generic Name Dose Route Start Last Admin Trade Name Freq PRN Reason Stop Dose Admin Acetaminophen 650 mg 10/20/18 23:15 Tylenol PO Q4H PRN Pain MILD(1-3)/Fever >100.5/MALIK Al Hydrox/Mg Hydrox/Simethicone 30 ml 10/20/18 23:15 Alum-Mag Hydrox-Simeth 465-380-83ov/5ml PO Q4H PRN Indigestion Albuterol 2.5 mg 10/25/18 00:24 Proventil IH Q4HRT PRN Shortness Of Breath Albuterol/Ipratropium 1 ampul 10/25/18 08:00 10/25/18 08:13 Duoneb *Not For Prn Use* IH 1 ampul TIDRT FLACA Administration Budesonide 0.5 mg 10/21/18 08:00 10/25/18 08:13 Pulmicort IH 0.5 mg Q12HRT FLACA Administration Docusate Sodium 100 mg 10/21/18 10:00 10/25/18 09:24 Colace PO 100 mg BID FLACA Administration Enoxaparin Sodium 40 mg 10/21/18 10:00 10/25/18 09:07 Lovenox SUB-Q Not Given QDAY FLACA Famotidine 20 mg 10/21/18 10:00 10/25/18 09:10 Pepcid PO Not Given BID FLACA Haloperidol 1 mg 10/22/18 11:36 Haldol PO Q6H PRN Agitation Hydralazine HCl 10 mg 10/22/18 02:46 10/22/18 19:42 Apresoline IV 10 mg Q4H PRN Administration SBP > 160 or DBP > 110 Lisinopril 40 mg 10/22/18 16:00 10/25/18 09:26 Zestril PO 40 mg QDAY FLACA Administration Nifedipine 60 mg 10/22/18 22:00 10/25/18 09:26 Procardia Xl PO 60 mg Q12HR FLACA Administration Ondansetron HCl 4 mg 10/20/18 23:15 Zofran IV Q8H PRN Nausea And Vomiting Oxycodone/Acetaminophen 1 tab 10/20/18 23:15 10/22/18 10:58 Percocet 5/325 PO 1 tab Q6H PRN Administration Pain, Moderate (4-6) Polyethylene Glycol 17 gm 10/21/18 10:00 10/25/18 09:24 Miralax 3350 PO 17 gm BID FLACA Administration Prednisone 30 mg 10/22/18 14:00 10/25/18 09:07 Deltasone PO Not Given QDAY FLACA Senna 8.6 mg 10/21/18 10:00 10/25/18 09:24 Senokot PO 8.6 mg Q12HR FLACA Administration Sodium Chloride 10 ml 10/21/18 10:00 10/24/18 22:54 Sodium Chloride Flush Syringe 10 Ml IV 10 ml BID FLACA Administration Sodium Chloride 10 ml 10/20/18 23:15 Sodium Chloride Flush Syringe 10 Ml IV PRN PRN LINE FLUSH Trazodone HCl 50 mg 10/22/18 22:00 10/24/18 22:53 Desyrel PO 50 mg QHS FLACA Administration Zolpidem Tartrate 5 mg 10/20/18 23:15 Ambien PO QHS PRN Insomnia
--- NOTE | 2018-10-25 12:01 | Progress Note ---
Assessment and Plan Assessment and plan: 73-year-old woman with history of dementia. The patient was brought into the hospital for shortness of breath wheezing and cough. Chest x-ray is negative for infiltrate CT abdomen shows abdominal wall hernia, but no obstruction or incarceration, also shows right moderate -severe hydronephrosis with some transition point at the right UPJ. Also large amount of stool in the descending colon and rectum consistent with fecal impaction Diagnoses COPD exacerbation Acute metabolic encephalopathy Mild moderate to severe right hydronephrosis Fecal impaction Dementia with behavioral disturbance Plan Continue steroids nebs and RT consult, pulmonary consult appreciated Urology and IR consult for management of obstructive uropathy, appreciated, needs nuc renal scan Patient had bedside enema, has been having bowel movements now. cont miralax bid Mental health consult, she has been agitated, and verbally abusive to staff, trazodone hs, and haldol prn -sp Nuc renal scan, , she does not have capacity to make her own decisions, consents must be obtained from her sister, who is giving permission to sedate her to do procedures and tests per urology "Given extensive comorbidities, patient will need outpatient urology referral to tertiary care center with renal scan images and report included, and CT included. Given the greater than 20% renal function, but the limited ability of the patient to followup, they can decide upon attempting to surgically correct the UPJ vs nephrectomy vs observation. Do not recommend percutaneous nephrostomy at this time as it will only complicate patient care." DVT prophylaxis with Lovenox NOK is Carmen Guerrier contact: [phone]. Disp; SOHAM, placement pending History Interval history: Review of systems Constitutional: No fevers, no malaise, no joint pains CVS: No chest pain, no orthopnea, no dyspnea on exertion, no pedal edema GI: No abdominal pain, no diarrhea, no vomiting, constipation is resolved Respiratory: denies sob Hospitalist Physical - Constitutional Vitals: Temp Pulse Resp BP Pulse Ox 98.0 F 79 18 119/76 91 10/25/18 07:55 10/25/18 09:26 10/25/18 08:00 10/25/18 09:26 10/25/18 07:55 General appearance: Present: no acute distress (multiple chronic issues which have been present for years) Results - Labs CBC & Chem 7: 10/21/18 04:34 10/21/18 04:34 Labs: Laboratory Last Values WBC 8.1 K/mm3 (4.5-11.0) 10/21/18 04:34 RBC 4.52 M/mm3 (3.65-5.03) 10/21/18 04:34 Hgb 12.2 gm/dl (10.1-14.3) 10/21/18 04:34 Hct 37.6 % (30.3-42.9) 10/21/18 04:34 MCV 83 fl (79-97) 10/21/18 04:34 MCH 27 pg (28-32) L 10/21/18 04:34 MCHC 33 % (30-34) 10/21/18 04:34 RDW 15.0 % (13.2-15.2) 10/21/18 04:34 Plt Count 170 K/mm3 (140-440) 10/21/18 04:34 Lymph % (Auto) 8.8 % (13.4-35.0) L 10/21/18 04:34 [place] % (Auto) 5.4 % (0.0-7.3) 10/21/18 04:34 Eos % (Auto) 0.0 % (0.0-4.3) 10/21/18 04:34 Baso % (Auto) 0.0 % (0.0-1.8) 10/21/18 04:34 Lymph # 0.7 K/mm3 (1.2-5.4) L 10/21/18 04:34 [place] # 0.4 K/mm3 (0.0-0.8) 10/21/18 04:34 Eos # 0.0 K/mm3 (0.0-0.4) 10/21/18 04:34 Baso # 0.0 K/mm3 (0.0-0.1) 10/21/18 04:34 Seg Neutrophils % 85.8 % (40.0-70.0) H 10/21/18 04:34 Seg Neutrophils # 6.9 K/mm3 (1.8-7.7) 10/21/18 04:34 PT 14.4 Sec. (12.2-14.9) 10/20/18 18:04 INR 1.05 (0.87-1.13) 10/20/18 18:04 POC ABG pH 7.427 (7.35-7.45) 10/21/18 14:38 POC ABG pCO2 38.3 (35-45) 10/21/18 14:38 POC ABG pO2 69 (80-105) L 10/21/18 14:38 POC ABG HCO3 25.3 (22-26 mml/L) 10/21/18 14:38 POC ABG Total CO2 26 (23-27mmol/L) 10/21/18 14:38 POC ABG O2 Sat 94 10/21/18 14:38 POC ABG Base Excess 1 ((-2) - (+3)mmol/L) 10/21/18 14:38 FiO2 21 % 10/21/18 14:38 Sodium 144 mmol/L (137-145) 10/21/18 04:34 Potassium 3.9 mmol/L (3.6-5.0) 10/21/18 04:34 Chloride 105.3 mmol/L (98-107) 10/21/18 04:34 Carbon Dioxide 24 mmol/L (22-30) 10/21/18 04:34 Anion Gap 19 mmol/L 10/21/18 04:34 BUN 15 mg/dL (7-17) 10/21/18 04:34 Creatinine 0.6 mg/dL (0.7-1.2) L 10/21/18 04:34 Estimated GFR > 60 ml/min 10/21/18 04:34 BUN/Creatinine Ratio 25 % 10/21/18 04:34 Glucose 148 mg/dL (65-100) H 10/21/18 04:34 Lactic Acid 1.50 mmol/L (0.7-2.0) 10/20/18 18:04 Calcium 8.4 mg/dL (8.4-10.2) 10/21/18 04:34 Phosphorus 3.10 mg/dL (2.5-4.5) 10/21/18 04:34 Magnesium 2.50 mg/dL (1.7-2.3) H 10/21/18 04:34 Total Bilirubin 0.50 mg/dL (0.1-1.2) 10/21/18 04:34 AST 21 units/L (5-40) 10/21/18 04:34 ALT 15 units/L (7-56) 10/21/18 04:34 Alkaline Phosphatase 52 units/L (35-129) 10/21/18 04:34 Troponin T < 0.010 ng/mL (0.00-0.029) 10/20/18 18:04 NT-Pro-B Natriuret Pep 1352 pg/mL (0-900) H 10/20/18 18:04 Total Protein 6.2 g/dL (6.3-8.2) L 10/21/18 04:34 Albumin 3.5 g/dL (3.9-5) L 10/21/18 04:34 Albumin/Globulin Ratio 1.3 % 10/21/18 04:34 Urine Color Yellow (Yellow) 10/20/18 17:55 Urine Turbidity Clear (Clear) 10/20/18 17:55 Urine pH 6.0 (5.0-7.0) 10/20/18 17:55 Ur Specific [place] 1.009 (1.003-1.030) 10/20/18 17:55 Urine Protein 30 mg/dl mg/dL (Negative) 10/20/18 17:55 Urine Glucose (UA) Neg mg/dL (Negative) 10/20/18 17:55 Urine Ketones Neg mg/dL (Negative) 10/20/18 17:55 Urine Blood Neg (Negative) 10/20/18 17:55 Urine Nitrite Neg (Negative) 10/20/18 17:55 Urine Bilirubin Neg (Negative) 10/20/18 17:55 Urine Urobilinogen < 2.0 mg/dL (<2.0) 10/20/18 17:55 Ur Leukocyte Esterase Neg (Negative) 10/20/18 17:55 Urine WBC (Auto) < 1.0 /HPF (0.0-6.0) 10/20/18 17:55 Urine RBC (Auto) 1.0 /HPF (0.0-6.0) 10/20/18 17:55 U Epithel Cells (Auto) 2.0 /HPF (0-13.0) 10/20/18 17:55 Urine Bacteria (Auto) 1+ /HPF (Negative) 10/20/18 17:55 Urine Mucus Few /HPF 10/20/18 17:55 Active Medications - Current Medications Current Medications: Generic Name Dose Route Start Last Admin Trade Name Freq PRN Reason Stop Dose Admin Acetaminophen 650 mg 10/20/18 23:15 Tylenol PO Q4H PRN Pain MILD(1-3)/Fever >100.5/MALIK Al Hydrox/Mg Hydrox/Simethicone 30 ml 10/20/18 23:15 Alum-Mag Hydrox-Simeth [phone]/5ml PO Q4H PRN Indigestion Albuterol 2.5 mg 10/25/18 00:24 Proventil IH Q4HRT PRN Shortness Of Breath Albuterol/Ipratropium 1 ampul 10/25/18 08:00 10/25/18 08:13 Duoneb *Not For Prn Use* IH 1 ampul TIDRT FLACA Administration Budesonide 0.5 mg 10/21/18 08:00 10/25/18 08:13 Pulmicort IH 0.5 mg Q12HRT FLACA Administration Docusate Sodium 100 mg 10/21/18 10:00 10/25/18 09:24 Colace PO 100 mg BID FLACA Administration Enoxaparin Sodium 40 mg 10/21/18 10:00 10/25/18 09:07 Lovenox SUB-Q Not Given QDAY FLACA Famotidine 20 mg 10/21/18 10:00 10/25/18 09:10 Pepcid PO Not Given BID FLACA Haloperidol 1 mg 10/22/18 11:36 Haldol PO Q6H PRN Agitation Hydralazine HCl 10 mg 10/22/18 02:46 10/22/18 19:42 Apresoline IV 10 mg Q4H PRN Administration SBP > 160 or DBP > 110 Lisinopril 40 mg 10/22/18 16:00 10/25/18 09:26 Zestril PO 40 mg QDAY FLACA Administration Nifedipine 60 mg 10/22/18 22:00 10/25/18 09:26 Procardia Xl PO 60 mg Q12HR FLACA Administration Ondansetron HCl 4 mg 10/20/18 23:15 Zofran IV Q8H PRN Nausea And Vomiting Oxycodone/Acetaminophen 1 tab 10/20/18 23:15 10/22/18 10:58 Percocet 5/325 PO 1 tab Q6H PRN Administration Pain, Moderate (4-6) Polyethylene Glycol 17 gm 10/21/18 10:00 10/25/18 09:24 Miralax 3350 PO 17 gm BID FLACA Administration Prednisone 30 mg 10/22/18 14:00 10/25/18 09:07 Deltasone PO Not Given QDAY FLACA Senna 8.6 mg 10/21/18 10:00 10/25/18 09:24 Senokot PO 8.6 mg Q12HR FLACA Administration Sodium Chloride 10 ml 10/21/18 10:00 10/24/18 22:54 Sodium Chloride Flush Syringe 10 Ml IV 10 ml BID FLACA Administration Sodium Chloride 10 ml 10/20/18 23:15 Sodium Chloride Flush Syringe 10 Ml IV PRN PRN LINE FLUSH Trazodone HCl 50 mg 10/22/18 22:00 10/24/18 22:53 Desyrel PO 50 mg QHS FLACA Administration Zolpidem Tartrate 5 mg 10/20/18 23:15 Ambien PO QHS PRN Insomnia
--- NOTE | 2018-10-25 13:05 | Discharge Summary ---
Providers - Providers Date of Admission: 10/20/18 23:15 Attending physician: DES SALOMON MD 10/20/18 Consult to Case Management [CONS] Routine Services Needed at Discharge: Other Notified:: yes If yes, spoke with:: christal/peter Caldwell Physician Instructions: Discharge planning 10/20/18 22:10 Consult to Physician [CONS] Urgent Comment: Dr. Wilburn spoke with Dr. Gan @ 2212 Consulting Provider: LETY GAN Physician Instructions: Reason For Exam: large ventral hernia without obstruction on ct 10/20/18 22:11 Consult to Physician [CONS] Urgent Comment: called office/ left message/ yoshi Consulting Provider: MIHIR MAZARIEGOS Physician Instructions: Reason For Exam: moderate to sever right hydro UPJ junctio 10/21/18 10:43 Consult to Physician [CONS] Routine Comment: called office spoke to maggi/ yoshi Consulting Provider: GERG RODAS Physician Instructions: Reason For Exam: copd 10/21/18 15:18 Consult to Mental Health [CONS] Routine Reason For Exam: behavioral disturbance Place consult to:: [facility] Notified:: yes Phone number called:: [phone] Was contact made?: Yes If yes, spoke with:: jean Barnes called:: 17:05 Comment:: yoshi 10/22/18 08:38 Physical Therapy Evaluation and Treat [CONS] Routine Comment: Reason For Exam: weakness Primary care physician: PRESS OPERATOR Hospitalization Condition: Stable Hospital course: 73-year-old woman with history of dementia. The patient was brought into the hospital for shortness of breath wheezing and cough. Chest x-ray is negative for infiltrate CT abdomen shows abdominal wall hernia, but no obstruction or incarceration, also shows right moderate -severe hydronephrosis with some transition point at the right UPJ. Also large amount of stool in the descending colon and rectum consistent with fecal impaction Diagnoses COPD exacerbation Acute metabolic encephalopathy Mild moderate to severe right hydronephrosis Fecal impaction Dementia with behavioral disturbance Plan rx with steroids nebs and RT consult, pulmonary consult appreciated, her sob improved Patient had bedside enema, has been having bowel movements now. cont miralax bid Mental health consult, she has been agitated, and verbally abusive to staff, started on trazodone hs, she improved and refused MH consult per urology "Given extensive comorbidities, patient will need outpatient urology referral to tertiary care center with renal scan images and report included, and CT included. Given the greater than 20% renal function, but the limited ability of the patient to followup, they can decide upon attempting to surgically correct the UPJ vs nephrectomy vs observation. Do not recommend percutaneous nephrostomy at this time as it will only complicate patient care." AUDRA Guerrier contact: [phone]. Disposition: DC-01 TO HOME OR SELFCARE Time spent for discharge: 33 mins Core Measure Documentation - Palliative Care Palliative Care/ Comfort Measures: Not Applicable - Core Measures Any of the following diagnoses?: none Exam - Physical Exam Narrative exam: General.: Appears well, no distress, nontoxic HEENT: Moist mucous membranes, extraocular muscles intact, no lymphadenopathy Neck: supple Cardiac: S1-S2 heard Lungs: CTA Abdomen: soft , nontender, nondistended, bowel sounds positive Extremities: no edema clubbing or cyanosis Skin: no rash or lesions Neurologic: no gross focal deficits, demented Psych: flight of ideas, confused, agitated, disorganized, lacks insight - Constitutional Vitals: Temp Pulse Resp BP Pulse Ox 98.0 F 79 18 119/76 91 10/25/18 07:55 10/25/18 09:26 10/25/18 08:00 10/25/18 09:26 10/25/18 07:55 Plan Follow up with: PRIMARY CAREMD [Primary Care Provider] - 3-5 Days MIHIR MAZARIEGOS MD [Staff Physician] - 7 Days Prescriptions: traZODone [Desyrel] 50 mg PO QHS #30 tablet Fluticasone/Salmeterol [Advair 100-50 Diskus] 1 each IH BID #1 blst.w.dev Albuterol Sulfate [Albuterol 0.63% NEBS] 0.63 mg IH TID PRN #90 ml PRN Reason: Wheezing Polyethylene Glycol 3350 [Miralax 3350] 17 gm PO BID #60 powd.pack oxyCODONE /ACETAMINOPHEN [Percocet 5/325 mg] 1 tab PO Q6H PRN #10 tablet PRN Reason: Pain, Moderate (4-6) predniSONE [Prednisone] 0 mg PO DAILY 6 Days tablet NIFEdipine XL [Procardia Xl] 60 mg PO Q12HR #60 tablet Sennosides Tab [Senokot] 8.6 mg PO Q12HR #60 tablet Tiotropium [place] [Spiriva Respimat] 1 each IH DAILY #1 mist.inhal ALBUTEROL Inhaler(NF) [VENTOLIN Inhaler(NF)] 1 puff IH Q4H PRN #1 inha PRN Reason: Shortness Of Breath Lisinopril [Zestril TAB] 40 mg PO QDAY #30 tablet
[2018-10-25 15:19] VITALS: BP 133/94
--- NOTE | 2018-10-27 16:03 | Progress Note ---
Mental Status Exam - Vital signs Last Vital Signs Temp 98.0 F 10/25/18 13:11 Pulse 107 H 10/25/18 13:11 Resp 20 10/25/18 13:11 BP 133/94 10/25/18 13:11 Pulse Ox 95 10/25/18 13:11
== END 2018-10-25 18:30 | disposition home or self-care (01) | DRG 388 ==
LOC: ED 16:51 → 2B-ACE 23:15
PROVIDERS: ADMIT Internal Medicine Geriatric Medicine; ATTEND Internal Medicine
PROC: 4A033R1 Measurement of Arterial Saturation, Peripheral, Percutaneous Approach (ICD-10-PCS; principal; 2018-10-21)
PROC: 3E1H78Z Irrigation of Lower GI using Irrigating Substance, Via Natural or Artificial Opening (ICD-10-PCS; 2018-10-21)
DX: K56.41 Fecal impaction (principal); G93.41 Metabolic encephalopathy; J44.1 Chronic obstructive pulmonary disease with (acute) exacerbation; N13.0 Hydronephrosis with ureteropelvic junction obstruction; F03.91 Unspecified dementia, unspecified severity, with behavioral disturbance; K46.9 Unspecified abdominal hernia without obstruction or gangrene; G89.29 Other chronic pain
CPT/HCPCS: 36415; 36600; 70450; 71045; 74018; 74176; 78707; 80053; 81001; 82140; 82803; 83735; 83880; 84100; 84484; 85025; 85027; 85610; 87040; 93005; 93010; 93306; 94640; 94760; G0378; A9562; J0360; J0696; J1630; J1650; J1940; J2060; J3475; J3486; J7030; J7050; J7512

== ENCOUNTER 2020-07-13 18:26 | Emergency (ER) | payer MEDICARE, MEDICAID ==
[~2020-07-13 18:26] MED LIST: EPINEPHrine 1 MG/10 ML SYRINGE ONE; SODIUM BICARB 8.4% 50 MEQ/50 ML SYRINGE IV ONE
--- NOTE | 2020-07-13 18:37 | Emergency Department Report ---
HPI - General Time Seen by Provider: 07/13/20 18:34 - HPI HPI: This is a 74-year-old -[place] female presents to the emergency department via EMS from home in cardiac arrest. Apparently the patient had a witnessed arrest about 30 minutes prior to presentation. There was no family or bystander CPR performed, but they called 911. EMS arrived and the patient was found to be in asystole. She was given a Davide airway, a left lower extremity intraosseous line, and began receiving chest compressions as part of ACLS protocol. The patient received 2 rounds of epinephrine and remained in asystole the entire time in route to the emergency department. Per EMS, the patient had also been complaining throughout the day about some abdominal pain related to a hernia that she has. The patient was last seen at this emergency department in October 2018 for some type of febrile illness and respiratory issues. ED Past Medical Hx - Past Medical History Hx Hypertension: Yes Hx Diabetes: Yes Hx COPD: Yes - Social History Smoking Status: Former Smoker - Medications Home Medications: Home Medications Medication Instructions Recorded Confirmed Last Taken Type ALBUTEROL Inhaler(NF) [VENTOLIN 1 puff IH Q4H PRN #1 inha 10/25/18 Unknown Rx Inhaler(NF)] Albuterol Sulfate [Albuterol 0.63% 0.63 mg IH TID PRN #90 ml 10/25/18 Unknown Rx NEBS] Fluticasone/Salmeterol [Advair 1 each IH BID #1 blst.w.dev 10/25/18 Unknown Rx 100-50 Diskus] NIFEdipine XL [Procardia Xl] 60 mg PO Q12HR #60 tablet 10/25/18 Unknown Rx Sennosides Tab [Senokot] 8.6 mg PO Q12HR #60 tablet 10/25/18 Unknown Rx Tiotropium [place] [Spiriva 1 each IH DAILY #1 mist.inhal 10/25/18 Unknown Rx Respimat] lisinopriL [Zestril TAB] 40 mg PO QDAY #30 tablet 10/25/18 Unknown Rx oxyCODONE /ACETAMINOPHEN [Percocet 1 tab PO Q6H PRN #10 tablet 10/25/18 Unknown Rx 5/325 mg] polyethylene glycoL 3350 [Miralax 17 gm PO BID #60 powd.pack 10/25/18 Unknown Rx 3350] predniSONE [Prednisone] 0 mg PO DAILY 6 Days tablet 10/25/18 Unknown Rx traZODone [Desyrel] 50 mg PO QHS #30 tablet 10/25/18 Unknown Rx ED Review of Systems ROS: Stated complaint: CARDIAC ARREST Other details as noted in HPI Comment: Unobtainable due to pts medical conditions Physical Exam - Physical Exam Physical Exam: GENERAL: Patient is ill-appearing and unresponsive. HENT: Normocephalic. Atraumatic. Davide airway in place. EYES: Pupils are fixed and dilated. NECK: Supple. Trachea appears midline. CHEST/LUNGS: There are no spontaneous respirations. HEART/CARDIOVASCULAR: There are no spontaneous heart sounds. ABDOMEN: Abdomen is soft. Obese abdomen. There is a large localized area of distention to the right lower quadrant that could be hernia versus mass. SKIN: Skin is cool but dry. NEURO: Unresponsive. Does not withdraw to painful stimuli. Does not follow any commands. MUSCULOSKELETAL: There is no obvious deformity. There is no evidence of acute injury. No palpable femoral or radial pulses. ED Medical Decision Making - Medical Decision Making This patient presented to the emergency department in cardiac arrest from home. Allegedly it was a witnessed arrest. No bystander CPR performed but the family called 911. The patient received a Davide airway, bag valve ventilation, a left lower extremity intraosseous line, 2 rounds of epinephrine, chest compressions, as part of ACLS protocol. EMS was with the patient for 30 minutes prior to arrival in our emergency department and remained in asystole the entire time. [facility] and placed on the last sorter and was still in asystole. We continued bag valve ventilation and chest compressions. The patient received epinephrine and sodium bicarbonate. After 3 to 4 minutes the patient was still pulseless and asystole. I took a bedside ultrasound and looked at the patient's heart but there was absolutely no movement, squeeze, or any visible cardiac activity. The patient's pupils were fixed and dilated, there are no spontaneous heart or breath sounds, the patient skin is cool to touch. Time of was called at 1816. Critical care attestation.: If time is entered above; I have spent that time in minutes in the direct care of this critically ill patient, excluding procedure time. ED Disposition Clinical Impression: Cardiac arrest Acute respiratory failure Qualifiers: Respiratory failure complication: unspecified whether with hypoxia or hypercapnia Qualified Code(s): J96.00 - Acute respiratory failure, unspecified whether with hypoxia or hypercapnia Disposition: DC-20 Is pt being admited?: No Condition: Stable Time of Disposition: 19:24
== END 2020-07-13 22:45 ==
LOC: ED 18:26
DX: I46.9 Cardiac arrest, cause unspecified (principal); J96.00 Acute respiratory failure, unspecified whether with hypoxia or hypercapnia; I10 Essential (primary) hypertension; E11.9 Type 2 diabetes mellitus without complications; J44.9 Chronic obstructive pulmonary disease, unspecified; Z87.891 Personal history of nicotine dependence; Z79.899 Other long term (current) drug therapy
CPT/HCPCS: 99285; J0171